=== PATIENT | female | born 1975 | race Caucasian/White ===

== ENCOUNTER 2016-11-11 19:21 | Emergency (ER) | payer BC ==
[2016-11-11] MEDS ORDERED: SODIUM CHLORIDE 0.9% 1,000 ML IV STA (19:56)
[2016-11-11] MEDS ORDERED: ASPIRIN 81 MG CHEW PO STA (19:56)
--- NOTE | 2016-11-11 20:00 | ED ---
Chest Pain HPI - General Chief Complaint: Chest Pain Stated Complaint: Chest Pain Time Seen by Provider: 11/11/16 19:46 Source: patient Mode of arrival: ambulatory Limitations: no limitations - History of Present Illness Initial Comments: Patient is a 41-year-old female past history of tobacco abuse presenting with left-sided chest pain. Patient states chest pain started at 6 PM when she was on the couch. Patient states it started with strong palpitations. Patient has not taken any with the pain. Patient states it radiated to her left shoulder. Patient denies any worsening pain with exertion. Patient states worse with sitting upright. Patient denies history of DVT/PE, recent travel/trauma/surgery , cancer, OCPs. Patient has history of hypertension, hyperlipidemia, diabetes, heart disease. Patient admits to drinking 2 Monsters a day. - Related Data Home Medications Medication Instructions Recorded Confirmed No Known Home Medications [No 11/11/16 11/11/16 Known Home Medications] Allergies Allergy/AdvReac Type Severity Reaction Status Date / Time cephalexin monohydrate Allergy Unknown Verified 11/11/16 19:39 [From Keflex] Penicillins Allergy Unknown Verified 11/11/16 19:39 Sulfa (Sulfonamide AdvReac Unknown Verified 11/11/16 19:39 Antibiotics) Review of Systems ROS Statement: Those systems with pertinent positive or pertinent negative responses have been documented in the HPI. Constitutional: No fever and no chills. HENT: No congestion, no rhinorrhea and no sore throat. Eyes: No discharge and no redness. Respiratory: No cough and no shortness of breath. Cardiovascular: Positive for palpitations and chest pain Gastrointestinal: +nausea, no vomiting, no abdominal pain and no diarrhea. Genitourinary: No dysuria and no hematuria. Musculoskeletal: No back pain and no arthralgias. Skin: No pallor and no rash. Neurological: No dizziness and No headaches. ROS Other: All systems not noted in ROS Statement are negative. EKG Findings - EKG Comments: EKG Findings:: EKG done at 1942 shows a ventricular rate of 88 bpm. Normal sinus rhythm with PVCs. GA interval 120 ms, QRS duration 86% segs, QTC [address] or T-wave changes. Past Medical History Past Medical History: No Reported History Additional Past Medical History / Comment(s): constipation History of Any Multi-Drug Resistant Organisms: None Reported Past Surgical History: Section, Cholecystectomy, Hysterectomy Past Psychological History: No Psychological Hx Reported Smoking Status: Never smoker Past Alcohol Use History: Occasional Past Drug Use History: None Reported General Exam - General Exam Comments Initial Comments: Constitutional: Patient appears well-developed and well-nourished. No distress. Head: Normocephalic and atraumatic. Eyes: Conjunctivae and EOM are normal. Right eye exhibits no discharge. Left eye exhibits no discharge. No scleral icterus. Neck: Normal range of motion. Neck supple. Cardiovascular: Normal rate and regular rhythm. No murmur heard. Pulmonary/Chest: Effort normal and breath sounds normal. No respiratory distress. No wheezes. Reproducible left chest wall and left shoulder tenderness Abdominal: Soft. No distension. There is no tenderness. There is no rebound and no guarding. Musculoskeletal: Normal range of motion. No edema or tenderness. Neurological: Patient alert and oriented to person, place, and time. Skin: Skin is warm and dry. Not diaphoretic. Nursing notes and vitals reviewed. Limitations: no limitations Course Vital Signs 11/11/16 11/11/16 19:29 20:16 Temperature 98.6 F Pulse Rate 108 H 88 Respiratory 18 16 Rate Blood Pressure 139/77 116/70 O2 Sat by Pulse 98 99 Oximetry - Reevaluation(s) Reevaluation #1: 11/11/16 21:16 Prior to discharge, patient was resting comfortably in bed. Course of stay improved. Denies chest pain. Patient is feeling better than when she first came in. Discussed physical exam and diagnostic tests with patient. Questions answered and patient is agreeable to discharge with close follow up with Primary Care Physician. Instructed to return to Emergency Department if symptoms worsen. [facility] Patient is a 41-year-old female with history of tobacco abuse presenting with left-sided chest pain. Patient's heart score is 2. Patient's PERC is positive for tachycardia and d-dimer was negative. EKG showed PVCs without ST or T-wave changes. Troponin was negative at ~3 hours after onset. Patient is feeling better after IV fluids and aspirin. Patient with reproducible left muscle tenderness for which Ativan was ordered. Patient agreeable to follow up with PCP tomorrow. Disposition Clinical Impression: Chest pain, Palpitations, PVCs (premature ventricular contractions) Disposition: HOME SELF-CARE Condition: Good Instructions: Chest Pain (ED), Costochondritis (ED), Palpitations (ED) Referrals: Chen Louis MD [Primary Care Provider] - 1-2 days
[2016-11-11 20:16] VITALS: RESP 16
[2016-11-11 20:39] LABS: Basophils # (A) 0.1 k/uL (0-0.2); Basophils % (A) 1 %; CH 28.8; CHCM 33.6; Eosinophils # (A) 0.6 k/uL (0-0.7); Eosinophils % (A) 7 %; HCT 42.4 % (34.0-46.0); HDW 2.31; Luc # (Auto) 0.15; Luc % (Auto) 2; Lymphocytes # (A) 2.7 k/uL (1.0-4.8); Lymphocytes % (A) 31 %; MCH 28.4 pg (25.0-35.0); MCV 85.9 fL (80.0-100.0); Mean Platelet Volume 7.8; Monocytes # (A) 0.5 k/uL (0-1.0); Monocytes % (A) 6 %; Neutrophils # (A) 4.5 k/uL (1.3-7.7); Neutrophils % (A) 52 %; RBC 4.94 m/uL (3.80-5.40); RDW 12.5 % (11.5-15.5); WBC 8.6 k/uL (3.8-10.6); WBC (Perox) 9.08
[2016-11-11 20:40] LABS: Appearance,Urine Clear (Clear); Bilirubin,Urine Negative (Negative); Glucose,Urine (UA) Negative (Negative); Ketones,Urine Negative (Negative); Leukocyte Esterase,Urine Negative (Negative); Nitrite,Urine Negative (Negative); PH, Urine 6.5 (5.0-8.0); Protein,Urine Negative (Negative); Specific Gravity,Urine 1.003 (1.001-1.035); UA Billing (MACRO vs. MICRO) CHEM; Urobilinogen,Urine <2.0 mg/dL (<2.0)
--- NOTE | 2016-11-11 20:48 | XR ---
EXAMINATION TYPE: XR chest 2V DATE OF EXAM: 11/11/2016 8:32 PM COMPARISON: 08/30/2015 HISTORY: Chest pain TECHNIQUE: Frontal and lateral views of the chest are obtained. FINDINGS: Heart and mediastinum are normal. Lungs are clear. Diaphragm is normal. Bony thorax and so ft tissues appear normal. There are chest leads. IMPRESSION: Normal chest. No change.
[2016-11-11 20:52] LABS: ALT 41 U/L (9-52); AST 21 U/L (14-36); Alkaline Phosphatase 45 U/L (38-126); Anion Gap 11 mmol/L; Blood Urea Nitrogen 9 mg/dL (7-17); Calcium 9.7 mg/dL (8.4-10.2); Carbon Dioxide 23 mmol/L (22-30); Chloride 107 mmol/L (98-107); Glucose 128 mg/dL (74-99); Magnesium 2.1 mg/dL (1.6-2.3); Non-African American GFR(MDRD) >60 (>60 ml/min/1.73 sqM); Potassium 3.8 mmol/L (3.5-5.1); Sodium 141 mmol/L (137-145); Total Bilirubin 0.5 mg/dL (0.2-1.3); Total Protein 7.3 g/dL (6.3-8.2)
[2016-11-11 20:53] LABS: Partial Thromboplastin Time 24.2 sec (22.0-30.0); Prothrombin Time 10.2 sec (9.0-12.0)
[2016-11-11] MEDS ORDERED: LORazepam 2 MG/ML SYRINGE IV STA (21:15)
[2016-11-11 21:19] VITALS: BP 105/67; PULSE 98
[2016-11-11 21:25] VITALS: TEMP 98.2
== END 2016-11-11 21:33 | disposition home or self-care (01) ==
LOC: EC 19:21
DX: R07.9 Chest pain, unspecified (principal); I49.3 Ventricular premature depolarization; R00.2 Palpitations; Z87.891 Personal history of nicotine dependence; Z88.0 Allergy status to penicillin; Z88.2 Allergy status to sulfonamides; Z88.1 Allergy status to other antibiotic agents
CPT/HCPCS: 96374; 96361; 99285; 36415; 93005; 85379; 80053; 83690; 83735; 84484; 85025; 85610; 85730; 81003; 71020; J2060

== ENCOUNTER 2017-01-31 04:07 | Emergency (ER) | payer BC ==
[2017-01-31] MEDS ORDERED: ACETAMINOPHEN TAB 500 MG TAB ONE (04:54)
[2017-01-31] MEDS ORDERED: SODIUM CHLORIDE 0.9% 1,000 ML BAG ONE (06:07)
[2017-01-31 07:27] LABS: Basophils % (A) 0 %; CH 29.2; CHCM 33.9; Eosinophils % (A) 0 %; HCT 41.5 % (34.0-46.0); HDW 2.32; HGB 14.1 gm/dL (11.4-16.0); Luc # (Auto) 0.09; Luc % (Auto) 1; Lymphocytes # (A) 0.9 k/uL (1.0-4.8); Lymphocytes % (A) 6 %; MCH 29.3 pg (25.0-35.0); MCHC 33.9 g/dL (31.0-37.0); MCV 86.3 fL (80.0-100.0); Mean Platelet Volume 7.5; Monocytes % (A) 7 %; Neutrophils # (A) 12.2 k/uL (1.3-7.7); Neutrophils % (A) 86 %; RBC 4.81 m/uL (3.80-5.40); RDW 12.6 % (11.5-15.5); WBC 14.3 k/uL (3.8-10.6); WBC (Perox) 14.65
[2017-01-31 07:28] LABS: INR 1.1 (<1.1); Partial Thromboplastin Time 25.9 sec (22.0-30.0); Prothrombin Time 10.7 sec (9.0-12.0)
[2017-01-31 07:33] LABS: Appearance,Urine Clear (Clear); Bacteria,Urine Occasional /hpf; Bilirubin,Urine Negative (Negative); Glucose,Urine (UA) Negative (Negative); Ketones,Urine 3+ (Negative); Leukocyte Esterase,Urine Negative (Negative); Mucus,Urine Occasional /hpf; Nitrite,Urine Negative (Negative); Particle Count 4649; Protein,Urine Trace (Negative); RBC,Urine 3 /hpf (0-5); Specific Gravity,Urine 1.016 (1.001-1.035); Squamous Epithelial Cell,Urine 2 /hpf (0-4); UA Billing (MACRO vs. MICRO) MICRO; Urobilinogen,Urine <2.0 mg/dL (<2.0); WBC,Urine 2 /hpf (0-5)
[2017-01-31 07:37] LABS: ALT 34 U/L (9-52); AST 26 U/L (14-36); Alkaline Phosphatase 64 U/L (38-126); Anion Gap 11 mmol/L; Blood Urea Nitrogen 6 mg/dL (7-17); Calcium 9.4 mg/dL (8.4-10.2); Carbon Dioxide 22 mmol/L (22-30); Chloride 105 mmol/L (98-107); Glucose 99 mg/dL (74-99); Magnesium 1.8 mg/dL (1.6-2.3); Non-African American GFR(MDRD) >60 (>60 ml/min/1.73 sqM); Potassium 3.7 mmol/L (3.5-5.1); Sodium 138 mmol/L (137-145); Total Bilirubin 0.6 mg/dL (0.2-1.3)
--- NOTE | 2017-01-31 08:32 | XR ---
EXAMINATION TYPE: XR chest 2V DATE OF EXAM: 01/31/2017 7:01 AM COMPARISON: Prior chest x-ray October HISTORY: Cough and congestion TECHNIQUE: Frontal and lateral views of the chest are obtained. FINDINGS: There is no focal air space opacity, pleural effusion, or pneumothorax seen. The cardiac silhouette size is within normal limits. Surgical clips in the upper abdomen. The osseous structures are intact. IMPRESSION: No acute cardiopulmonary process.
== END 2017-01-31 07:00 | disposition home or self-care (01) ==
LOC: EC 04:07
DX: J02.9 Acute pharyngitis, unspecified (principal)
CPT/HCPCS: 36415; 71020; 80053; 81001; 81025; 83735; 85025; 85610; 85730; 86308; 87081; 87430; 87502; 99283

== ENCOUNTER 2018-01-22 21:26 | Emergency (ER) | payer BC, OTHER ==
[2018-01-22 21:31] VITALS: PULSE 78; RESP 18
[2018-01-22] MEDS ORDERED: SODIUM CHLORIDE 0.9% 1,000 ML IV ONE (21:57)
[2018-01-22] MEDS ORDERED: MAG HYDROX/AL HYDROX/SIMETH 30 ML, HYOSCYAMINE ELIXIR 10 ML, CIMETIDINE HCL 300 MG, LID... PO STA ×4 (21:57)
[2018-01-22] MEDS ORDERED: MORPHINE SULFATE 4MG/4ML SYRG IVP STA (21:57)
[2018-01-22 22:47] LABS: Basophils % (A) 0 %; Eosinophils # (A) 0.5 k/uL (0-0.7); Eosinophils % (A) 7 %; HCT 40.7 % (34.0-46.0); HGB 13.7 gm/dL (11.4-16.0); Lymphocytes # (A) 3.3 k/uL (1.0-4.8); Lymphocytes % (A) 42 %; MCH 28.6 pg (25.0-35.0); MCHC 33.5 g/dL (31.0-37.0); MCV 85.4 fL (80.0-100.0); Mean Platelet Volume 7.8; Monocytes # (A) 0.6 k/uL (0-1.0); Monocytes % (A) 8 %; Neutrophils # (A) 3.1 k/uL (1.3-7.7); Neutrophils % (A) 41 %; Platelet Count 375 k/uL (150-450); RBC 4.77 m/uL (3.80-5.40); RDW 12.8 % (11.5-15.5); WBC 7.7 k/uL (3.8-10.6)
[2018-01-22 22:59] LABS: ALT 24 U/L (9-52); AST 14 U/L (14-36); Alkaline Phosphatase 42 U/L (38-126); Anion Gap 14 mmol/L; Blood Urea Nitrogen 10 mg/dL (7-17); Calcium 9.8 mg/dL (8.4-10.2); Carbon Dioxide 20 mmol/L (22-30); Chloride 110 mmol/L (98-107); Glucose 92 mg/dL (74-99); Lipase 147 U/L (23-300); Potassium 3.6 mmol/L (3.5-5.1); Sodium 144 mmol/L (137-145); Total Bilirubin 0.3 mg/dL (0.2-1.3); Total Protein 6.7 g/dL (6.3-8.2)
--- NOTE | 2018-01-23 00:06 | ED ---
Abdominal Pain HPI - General Chief Complaint: Abdominal Pain Stated Complaint: abd pain, nausea Time Seen by Provider: 01/22/18 21:40 Source: patient Mode of arrival: ambulatory Limitations: no limitations - History of Present Illness Initial Comments: 42-year-old female presented for evaluation of left-sided abdominal pain. She states that her symptoms started yesterday morning and progressively worsened throughout the last 24-36 hours. Pain is located on the left upper abdomen with some radiation to the epigastric and periumbilical abdomen. Pain is worse with by mouth intake and has no alleviating factors. There is no radiation and she rates it at about a 7-8 out of 10. She has tried no other medications for her symptoms. She's never had these symptoms before. - Related Data Home Medications Medication Instructions Recorded Confirmed Phentermine/Topiramate [Qsymia 15 1 cap PO DAILY 01/22/18 01/22/18 mg-92 mg Capsule] Previous Rx's Medication Instructions Recorded Mag Hydrox/Al Hydrox/Simeth 30 ml PO Q8HR PRN #300 ml 01/23/18 [Maalox] Ranitidine HCl [Zantac] 150 mg PO BID #30 tab 01/23/18 Allergies Allergy/AdvReac Type Severity Reaction Status Date / Time cephalexin monohydrate Allergy Anaphylaxis Verified 01/22/18 21:47 [From Keflex] Penicillins Allergy Anaphylaxis Verified 01/22/18 21:47 Sulfa (Sulfonamide AdvReac Anaphylaxis Verified 01/22/18 21:47 Antibiotics) Review of Systems ROS Statement: Those systems with pertinent positive or pertinent negative responses have been documented in the HPI. ROS Other: All systems not noted in ROS Statement are negative. Constitutional: Denies: fever, chills Eyes: Denies: eye pain, eye discharge ENT: Denies: ear pain, throat pain Respiratory: Denies: cough, dyspnea Cardiovascular: Denies: chest pain, palpitations Endocrine: Denies: fatigue, heat or cold intolerance Gastrointestinal: Reports: abdominal pain, nausea. Denies: vomiting, diarrhea, constipation Genitourinary: Denies: urgency, dysuria Musculoskeletal: Denies: back pain, arthralgia, myalgia Skin: Denies: rash, lesions Neurological: Denies: headache, weakness Psychiatric: Denies: anxiety, depression Past Medical History Past Medical History: No Reported History Additional Past Medical History / Comment(s): constipation History of Any Multi-Drug Resistant Organisms: None Reported Past Surgical History: Section, Cholecystectomy, Hysterectomy Past Psychological History: No Psychological Hx Reported Smoking Status: Current every day smoker Past Alcohol Use History: Occasional Past Drug Use History: None Reported General Exam Limitations: no limitations General appearance: alert, in no apparent distress Head exam: Present: atraumatic, normocephalic Eye exam: Present: normal appearance, PERRL, EOMI ENT exam: Present: normal exam, normal oropharynx Neck exam: Present: normal inspection, full ROM Respiratory exam: Present: normal lung sounds bilaterally. Absent: respiratory distress Cardiovascular Exam: Present: regular rate, normal rhythm GI/Abdominal exam: Present: soft, tenderness. Absent: distended, guarding, rebound, rigid Rectal exam: Present: deferred Extremities exam: Present: normal inspection, full ROM Back exam: Present: normal inspection, full ROM Neurological exam: Present: alert, oriented X3 Psychiatric exam: Present: normal affect, normal mood Skin exam: Present: warm, dry, intact Course Vital Signs 01/22/18 01/23/18 21:29 00:34 Temperature 98.2 F 98.6 F Pulse Rate 78 78 Respiratory 18 18 Rate Blood Pressure 121/74 105/63 O2 Sat by Pulse 98 100 Oximetry Medical Decision Making - Medical Decision Making 42-year-old female presenting for evaluation of left upper quadrant abdominal pain since yesterday. On physical examination she is in no apparent distress and vitals signs are stable. Abdomen is soft without peritoneal signs of guarding, rigidity, rebound or but she does have tenderness to right upper quadrant and epigastric abdomen. Remainder of her physical exam is benign. Labs are obtained which were negative for pancreatitis and had no other acute abnormalities. Patient was reevaluated after be given GI cocktail and she had improvement in her symptoms. Abdomen remained soft and only minimally tender at this point. She was informed of all results and as point CT abdomen and pelvis not indicated with normal signs, no leukocytosis, improving symptoms with the cocktail. Advised to follow up as an outpatient and given strict return instructions if her symptoms should worsen or persist over the weekend. She return to the ED for further treatment and evaluation she would likely require computed tomography scan among other options. The patient acknowledged an understanding of all information provided and agreed with this plan of care. - Lab Data Result diagrams: 01/22/18 22:25 01/22/18 22:25 Lab Results 01/22/18 01/22/18 01/22/18 Range/Units 22:25 22:25 22:25 WBC 7.7 (3.8-10.6) k/uL RBC 4.77 (3.80-5.40) m/uL Hgb 13.7 (11.4-16.0) gm/dL Hct 40.7 (34.0-46.0) % MCV 85.4 (80.0-100.0) fL MCH 28.6 (25.0-35.0) pg MCHC 33.5 (31.0-37.0) g/dL RDW 12.8 (11.5-15.5) % Plt Count 375 (150-450) k/uL Neutrophils % 41 % Lymphocytes % 42 % Monocytes % 8 % Eosinophils % 7 % Basophils % 0 % Neutrophils # 3.1 (1.3-7.7) k/uL Lymphocytes # 3.3 (1.0-4.8) k/uL Monocytes # 0.6 (0-1.0) k/uL Eosinophils # 0.5 (0-0.7) k/uL Basophils # 0.0 (0-0.2) k/uL Sodium 144 (137-145) mmol/L Potassium 3.6 (3.5-5.1) mmol/L Chloride 110 H (98-107) mmol/L Carbon Dioxide 20 L (22-30) mmol/L Anion Gap 14 mmol/L BUN 10 (7-17) mg/dL Creatinine 0.70 (0.52-1.04) mg/dL Est GFR (CKD-EPI)AfAm >90 (>60 ml/min/1.73 sqM) Est GFR (CKD-EPI)NonAf >90 (>60 ml/min/1.73 sqM) Glucose 92 (74-99) mg/dL Plasma Lactic Acid Slava 0.9 (0.7-2.0) mmol/L Calcium 9.8 (8.4-10.2) mg/dL Total Bilirubin 0.3 (0.2-1.3) mg/dL AST 14 (14-36) U/L ALT 24 (9-52) U/L Alkaline Phosphatase 42 (38-126) U/L Troponin I (0.000-0.034) ng/mL Total Protein 6.7 (6.3-8.2) g/dL Albumin 4.0 (3.5-5.0) g/dL Lipase 147 (23-300) U/L 01/22/18 Range/Units 22:25 WBC (3.8-10.6) k/uL RBC (3.80-5.40) m/uL Hgb (11.4-16.0) gm/dL Hct (34.0-46.0) % MCV (80.0-100.0) fL MCH (25.0-35.0) pg MCHC (31.0-37.0) g/dL RDW (11.5-15.5) % Plt Count (150-450) k/uL Neutrophils % % Lymphocytes % % Monocytes % % Eosinophils % % Basophils % % Neutrophils # (1.3-7.7) k/uL Lymphocytes # (1.0-4.8) k/uL Monocytes # (0-1.0) k/uL Eosinophils # (0-0.7) k/uL Basophils # (0-0.2) k/uL Sodium (137-145) mmol/L Potassium (3.5-5.1) mmol/L Chloride (98-107) mmol/L Carbon Dioxide (22-30) mmol/L Anion Gap mmol/L BUN (7-17) mg/dL Creatinine (0.52-1.04) mg/dL Est GFR (CKD-EPI)AfAm (>60 ml/min/1.73 sqM) Est GFR (CKD-EPI)NonAf (>60 ml/min/1.73 sqM) Glucose (74-99) mg/dL Plasma Lactic Acid Slava (0.7-2.0) mmol/L Calcium (8.4-10.2) mg/dL Total Bilirubin (0.2-1.3) mg/dL AST (14-36) U/L ALT (9-52) U/L Alkaline Phosphatase (38-126) U/L Troponin I <0.012 (0.000-0.034) ng/mL Total Protein (6.3-8.2) g/dL Albumin (3.5-5.0) g/dL Lipase (23-300) U/L Disposition Clinical Impression: Abdominal pain Disposition: HOME SELF-CARE Condition: Stable Instructions: Abdominal Pain (ED) Additional Instructions: Please use medication as discussed. Please follow up with family doctor if symptoms have not improved over the next two days. Please return to the emergency room if your symptoms increase or worsen or for any other concerns. Prescriptions: Mag Hydrox/Al Hydrox/Simeth [Maalox] 30 ml PO Q8HR PRN #300 ml PRN Reason: abdominal pain Ranitidine HCl [Zantac] 150 mg PO BID #30 tab Referrals: Chen Louis MD [Primary Care Provider] - 1-2 days Ilir Dennis MD [STAFF PHYSICIAN] - 1-2 days Time of Disposition: 00:05
[2018-01-23 00:36] VITALS: BP 105/63; TEMP 98.6
== END 2018-01-23 00:46 | disposition home or self-care (01) ==
LOC: EC 21:26
DX: R10.12 Left upper quadrant pain (principal); R10.13 Epigastric pain; R10.11 Right upper quadrant pain; F17.200 Nicotine dependence, unspecified, uncomplicated; Z79.899 Other long term (current) drug therapy; Z88.0 Allergy status to penicillin; Z88.2 Allergy status to sulfonamides; Z88.1 Allergy status to other antibiotic agents; Z90.49 Acquired absence of other specified parts of digestive tract; Z90.710 Acquired absence of both cervix and uterus
CPT/HCPCS: 36415; 93005; 80053; 83605; 83690; 84484; 85025; 99284; 96374; 96361 ×2; J2270

== ENCOUNTER 2018-01-30 19:25 | Emergency (ER) | payer BC ==
[2018-01-30 19:42] VITALS: RESP 16
[2018-01-30] MEDS ORDERED: RX INFO: IV CONTRAST WAS GIVEN 1 EACH MISC MISCELLANE PRN (20:14)
[2018-01-30] MEDS ORDERED: SODIUM CHLORIDE 0.9% 1,000 ML IV STA (20:14)
--- NOTE | 2018-01-30 20:19 | ED ---
Abdominal Pain HPI - General Chief Complaint: Abdominal Pain Stated Complaint: Abd pain Time Seen by Provider: 01/30/18 20:06 Source: patient Mode of arrival: ambulatory Limitations: no limitations - History of Present Illness Initial Comments: 42-year-old female patient presents to the emergency department today for evaluation of generalized abdominal pain 1 week. Patient describes the pain as "thick". Patient states the pain worsens with eating. She describes pain as sharp, burning, and stabbing pain. States it is mostly in her midepigastric region at this point. Patient has had 3 C-sections and a cholecystectomy in the past. Patient states she is feeling nauseated but has not vomited. Patient states that over the last 2 days she has been having dark green diarrhea. States that it is soft but not liquidy. Patient generally has issues with constipation however states she has been having bowel movements daily. Patient was seen and evaluated here one week ago and told she most likely has a ulcer. States she has been taking Zantac and Maalox without relief of symptoms. She denies any fevers or chills with this. Denies any radiation of the pain to her back. She denies any hematuria, dysuria, urinary frequency, urinary urgency. Denies any abnormal vaginal bleeding or discharge. Patient denies any recent rash, shortness breath, chest pain, diarrhea, constipation, back pain, numbness, tingling, dizziness, weakness, headache, visual changes, or any other complaints. - Related Data Home Medications Medication Instructions Recorded Confirmed Phentermine/Topiramate [Qsymia 15 1 cap PO DAILY 01/22/18 01/30/18 mg-92 mg Capsule] Previous Rx's Medication Instructions Recorded Mag Hydrox/Al Hydrox/Simeth 30 ml PO Q8HR PRN #300 ml 01/23/18 [Maalox] Ranitidine HCl [Zantac] 150 mg PO BID #30 tab 01/23/18 Ranitidine HCl [Zantac] 150 mg PO BID #60 tab 01/30/18 Allergies Allergy/AdvReac Type Severity Reaction Status Date / Time cephalexin monohydrate Allergy Anaphylaxis Verified 01/30/18 19:46 [From Keflex] Penicillins Allergy Anaphylaxis Verified 01/30/18 19:46 Sulfa (Sulfonamide AdvReac Anaphylaxis Verified 01/30/18 19:46 Antibiotics) Review of Systems ROS Statement: Those systems with pertinent positive or pertinent negative responses have been documented in the HPI. ROS Other: All systems not noted in ROS Statement are negative. Past Medical History Past Medical History: No Reported History Additional Past Medical History / Comment(s): constipation History of Any Multi-Drug Resistant Organisms: None Reported Past Surgical History: Section, Cholecystectomy, Hysterectomy Past Psychological History: No Psychological Hx Reported Smoking Status: Current every day smoker Past Alcohol Use History: Occasional Past Drug Use History: None Reported General Exam Limitations: no limitations General appearance: alert, in no apparent distress, other (This is a well- developed, well-nourished adult female patient in no acute distress. Vital signs upon presentation are temperature 97.5F, pulse 109, respirations 16, blood pressure 137/65, pulse ox 99% on room air.) Eye exam: Present: normal appearance, PERRL, EOMI. Absent: scleral icterus, conjunctival injection, periorbital swelling ENT exam: Present: normal exam, normal oropharynx, mucous membranes moist Respiratory exam: Present: normal lung sounds bilaterally. Absent: respiratory distress, wheezes, rales, rhonchi, stridor Cardiovascular Exam: Present: normal rhythm, tachycardia, normal heart sounds. Absent: systolic murmur, diastolic murmur, rubs, gallop, clicks GI/Abdominal exam: Present: soft, tenderness (Upper abdominal tenderness), normal bowel sounds. Absent: distended, guarding, rebound, rigid Neurological exam: Present: alert, oriented X3, CN II-XII intact Psychiatric exam: Present: normal affect, normal mood Skin exam: Present: warm, dry, intact, normal color. Absent: rash Course Vital Signs 01/30/18 01/30/18 19:39 22:26 Temperature 97.5 F L 98.8 F Pulse Rate 109 H 110 H Respiratory 16 16 Rate Blood Pressure 137/65 113/57 O2 Sat by Pulse 99 98 Oximetry Medical Decision Making - Medical Decision Making 42-year-old female patient presents to the emergency department today complaining of generalized abdominal pain mostly in the epigastric region. States it worsens after eating. Physical examination did reveal some mild upper abdominal tenderness. Labs reviewed and are unremarkable. Urinalysis was negative. This is patient's second visit for similar symptoms in the last week. Did perform CT of the abdomen and pelvis which showed no acute abnormalities. I did discuss findings and results with the patient. I did discuss peptic ulcer disease is a possibility for the cause of her symptoms. She was given education regarding dietary changes. She was given a refill on her Zantac. She is instructed to follow-up with the instructional coordinator. Return parameters discussed in detail. She verbalizes understanding and agrees with this plan. - Lab Data Result diagrams: 01/30/18 20:32 01/30/18 20:32 Lab Results 01/30/18 01/30/18 01/30/18 Range/Units 20:22 20:22 20:32 WBC (3.8-10.6) k/uL RBC (3.80-5.40) m/uL Hgb (11.4-16.0) gm/dL Hct (34.0-46.0) % MCV (80.0-100.0) fL MCH (25.0-35.0) pg MCHC (31.0-37.0) g/dL RDW (11.5-15.5) % Plt Count (150-450) k/uL Neutrophils % % Lymphocytes % % Monocytes % % Eosinophils % % Basophils % % Neutrophils # (1.3-7.7) k/uL Lymphocytes # (1.0-4.8) k/uL Monocytes # (0-1.0) k/uL Eosinophils # (0-0.7) k/uL Basophils # (0-0.2) k/uL Sodium 145 (137-145) mmol/L Potassium 4.1 (3.5-5.1) mmol/L Chloride 110 H (98-107) mmol/L Carbon Dioxide 20 L (22-30) mmol/L Anion Gap 15 mmol/L BUN 7 (7-17) mg/dL Creatinine 0.72 (0.52-1.04) mg/dL Est GFR (CKD-EPI)AfAm >90 (>60 ml/min/1.73 sqM) Est GFR (CKD-EPI)NonAf >90 (>60 ml/min/1.73 sqM) Glucose 88 (74-99) mg/dL Calcium 10.1 (8.4-10.2) mg/dL Total Bilirubin 0.4 (0.2-1.3) mg/dL AST 21 (14-36) U/L ALT 32 (9-52) U/L Alkaline Phosphatase 43 (38-126) U/L Total Protein 7.0 (6.3-8.2) g/dL Albumin 4.3 (3.5-5.0) g/dL Amylase 86 (30-110) U/L Lipase 103 (23-300) U/L Urine Color Colorless Urine Appearance Clear (Clear) Urine pH 7.0 (5.0-8.0) Ur Specific [place] 1.003 (1.001-1.035) Urine Protein Negative (Negative) Urine Glucose (UA) Negative (Negative) Urine Ketones Negative (Negative) Urine Blood Negative (Negative) Urine Nitrite Negative (Negative) Urine Bilirubin Negative (Negative) Urine Urobilinogen <2.0 (<2.0) mg/dL Ur Leukocyte Esterase Negative (Negative) Urine HCG, Qual Not Detected (Not Detectd) 01/30/18 Range/Units 20:32 WBC 6.1 (3.8-10.6) k/uL RBC 4.97 (3.80-5.40) m/uL Hgb 14.1 (11.4-16.0) gm/dL Hct 43.4 (34.0-46.0) % MCV 87.4 (80.0-100.0) fL MCH 28.4 (25.0-35.0) pg MCHC 32.5 (31.0-37.0) g/dL RDW 12.6 (11.5-15.5) % Plt Count 356 (150-450) k/uL Neutrophils % 37 % Lymphocytes % 43 % Monocytes % 8 % Eosinophils % 9 % Basophils % 0 % Neutrophils # 2.3 (1.3-7.7) k/uL Lymphocytes # 2.6 (1.0-4.8) k/uL Monocytes # 0.5 (0-1.0) k/uL Eosinophils # 0.6 (0-0.7) k/uL Basophils # 0.0 (0-0.2) k/uL Sodium (137-145) mmol/L Potassium (3.5-5.1) mmol/L Chloride (98-107) mmol/L Carbon Dioxide (22-30) mmol/L Anion Gap mmol/L BUN (7-17) mg/dL Creatinine (0.52-1.04) mg/dL Est GFR (CKD-EPI)AfAm (>60 ml/min/1.73 sqM) Est GFR (CKD-EPI)NonAf (>60 ml/min/1.73 sqM) Glucose (74-99) mg/dL Calcium (8.4-10.2) mg/dL Total Bilirubin (0.2-1.3) mg/dL AST (14-36) U/L ALT (9-52) U/L Alkaline Phosphatase (38-126) U/L Total Protein (6.3-8.2) g/dL Albumin (3.5-5.0) g/dL Amylase (30-110) U/L Lipase (23-300) U/L Urine Color Urine Appearance (Clear) Urine pH (5.0-8.0) Ur Specific [place] (1.001-1.035) Urine Protein (Negative) Urine Glucose (UA) (Negative) Urine Ketones (Negative) Urine Blood (Negative) Urine Nitrite (Negative) Urine Bilirubin (Negative) Urine Urobilinogen (<2.0) mg/dL Ur Leukocyte Esterase (Negative) Urine HCG, Qual (Not Detectd) - EKG Data -: EKG Interpreted by Mo EKG Comments: EKG obtained at 2037 shows normal sinus rhythm with a ventricular rate of 87, NE interval 154, QRS duration 94, QT 380, QTC 457. No evidence of ST elevation or depression. - Radiology Data Radiology results: report reviewed, image reviewed CT of the abdomen and pelvis with contrast was obtained. Report was reviewed in its entirety. Impression by Dr. Salcedo shows normal appendix. Calcified posterior mild disc herniation L3 to 4 with a mild relative spinal stenosis. This is similar to old exam. No sign of acute abdomen and pelvis. Disposition Clinical Impression: Abdominal pain Disposition: HOME SELF-CARE Condition: Good Instructions: Peptic Ulcer (ED), Diet for Stomach Ulcers and Gastritis (ED), Abdominal Pain (ED) Additional Instructions: Continue medications. Follow up with GI specialist as soon as possible. Return here immediately for any new, worsening, or concerning symptoms. Prescriptions: Ranitidine HCl [Zantac] 150 mg PO BID #60 tab Referrals: Chen Louis MD [Primary Care Provider] - 1-2 days Ilir Dennis MD [STAFF PHYSICIAN] - 1-2 days Time of Disposition: 22:33
[2018-01-30 20:37] LABS: Appearance,Urine Clear (Clear); Bilirubin,Urine Negative (Negative); Blood,Urine Negative (Negative); Color,Urine Colorless; Glucose,Urine (UA) Negative (Negative); Ketones,Urine Negative (Negative); Leukocyte Esterase,Urine Negative (Negative); Nitrite,Urine Negative (Negative); Protein,Urine Negative (Negative); Specific Gravity,Urine 1.003 (1.001-1.035); Urobilinogen,Urine <2.0 mg/dL (<2.0)
[2018-01-30 20:56] LABS: Basophils % (A) 0 %; Eosinophils # (A) 0.6 k/uL (0-0.7); Eosinophils % (A) 9 %; HCT 43.4 % (34.0-46.0); HGB 14.1 gm/dL (11.4-16.0); Lymphocytes # (A) 2.6 k/uL (1.0-4.8); Lymphocytes % (A) 43 %; MCH 28.4 pg (25.0-35.0); MCHC 32.5 g/dL (31.0-37.0); MCV 87.4 fL (80.0-100.0); Mean Platelet Volume 7.5; Monocytes # (A) 0.5 k/uL (0-1.0); Monocytes % (A) 8 %; Neutrophils # (A) 2.3 k/uL (1.3-7.7); Neutrophils % (A) 37 %; Platelet Count 356 k/uL (150-450); RBC 4.97 m/uL (3.80-5.40); RDW 12.6 % (11.5-15.5); WBC 6.1 k/uL (3.8-10.6)
[2018-01-30 21:23] LABS: ALT 32 U/L (9-52); AST 21 U/L (14-36); Albumin 4.3 g/dL (3.5-5.0); Alkaline Phosphatase 43 U/L (38-126); Amylase 86 U/L (30-110); Anion Gap 15 mmol/L; Blood Urea Nitrogen 7 mg/dL (7-17); Calcium 10.1 mg/dL (8.4-10.2); Carbon Dioxide 20 mmol/L (22-30); Chloride 110 mmol/L (98-107); Glucose 88 mg/dL (74-99); Lipase 103 U/L (23-300); Potassium 4.1 mmol/L (3.5-5.1); Sodium 145 mmol/L (137-145); Total Bilirubin 0.4 mg/dL (0.2-1.3)
--- NOTE | 2018-01-30 21:52 | CT ---
EXAMINATION TYPE: CT abdomen pelvis w con DATE OF EXAM: 01/30/2018 COMPARISON: November 26, 2010 HISTORY: Generalized abd pain, nausea and diarrhea. CT DLP: 585.2 mGycm Automated exposure control for dose reduction was used. TECHNIQUE: Helical acquisition of images was performed from the lung bases through the pelvis. CONTRAST: Performed without Oral Contrast and with IV Contrast, patient injected with 100ml mL of Isovue 300. FINDINGS: Lung bases are clear. There is no pleural effusion. Heart size is normal. The liver spleen pancreas appear normal. There are clips from cholecystectomy. Bile ducts are not dil ated. There is no adrenal mass. Kidneys show satisfactory contrast opacification. There is no hydronephrosi s. There is no retroperitoneal adenopathy. There is no ascites. The bladder distends smoothly. There is no evidence of a pelvic mass. I see no intestinal wall thickening. There are no dilated loops. Beto endix appears normal. There is spondylotic change at L4-5. There is posterior disc herniation at L3-4 with calcification. There is a mild relative spinal stenosis at L3-4. Uterus appears absent. IMPRESSION: NORMAL APPENDIX. CALCIFIED POSTERIOR MILD DISC HERNIATION AT L3-4 WITH A MILD RELATIVE SPINAL STENOSI S. THIS IS SIMILAR TO OLD EXAM. NO SIGN OF ACUTE ABDOMEN AND PELVIS.
[2018-01-30 22:27] VITALS: BP 113/57; PULSE 110; TEMP 98.8
== END 2018-01-30 22:40 | disposition home or self-care (01) ==
LOC: EC 19:25
DX: R10.13 Epigastric pain (principal); R10.84 Generalized abdominal pain; R11.0 Nausea; M51.26 Other intervertebral disc displacement, lumbar region; R00.0 Tachycardia, unspecified; F17.200 Nicotine dependence, unspecified, uncomplicated; Z79.899 Other long term (current) drug therapy; Z88.0 Allergy status to penicillin; Z88.1 Allergy status to other antibiotic agents; Z88.2 Allergy status to sulfonamides; Z90.49 Acquired absence of other specified parts of digestive tract
CPT/HCPCS: 36415; 93005; 80053; 82150; 83690; 85025; 81003; 81025; 74177; 99284; Q9967

== ENCOUNTER 2018-02-05 12:40 | Day surgery (SDC) | payer BC ==
[2018-02-04 14:12] VITALS: BMI 27.4
[~2018-02-05 12:40] MED LIST: LACTATED RINGERS 1,000 ML IV SCH
[2018-02-05 13:18] VITALS: RESP 16; TEMP 98.3
[2018-02-05] MEDS ORDERED: LIDOCAINE 1% INJ 10MG/ML (20 ML MDV) ONE (14:12)
[2018-02-05] MEDS ORDERED: PROPOFOL 10 MG/ML 20 ML VIAL IV ONE (14:12)
--- NOTE | 2018-02-05 14:21 | P.GSHP ---
History of Present Illness H&P Date: 02/05/18 Chief Complaint: Abdominal pain Patient is been having epigastric and left upper quadrant pain for the last 2-3 weeks. Pain is pressure like. Some nausea but no vomiting. No significant change in bowel habits. Denies rectal bleeding or melena. No fevers. Recent labs normal. Had a CAT scan recently which showed a large amount of food within the stomach but otherwise normal. Past Medical History Past Medical History: No Reported History Additional Past Medical History / Comment(s): HX constipation. SEVERE ABD PAIN FOR 2 WEEKS. History of Any Multi-Drug Resistant Organisms: None Reported Past Surgical History: Section, Cholecystectomy, Hysterectomy, Uterine Ablation Past Anesthesia/Blood Transfusion Reactions: No Reported Reaction Smoking Status: Current every day smoker - Past Family History Sister(s) Family Medical History: Pulmonary Embolus Medications and Allergies Home Medications Medication Instructions Recorded Confirmed Type Phentermine/Topiramate [Qsymia 15 1 cap PO DAILY 01/22/18 02/05/18 History mg-92 mg Capsule] Ranitidine HCl [Zantac] 150 mg PO BID #60 tab 01/30/18 02/04/18 Rx Mag Hydrox/Al Hydrox/Simeth 30 ml PO BID 02/04/18 02/04/18 History [Maalox] Allergies Allergy/AdvReac Type Severity Reaction Status Date / Time cephalexin monohydrate Allergy Anaphylaxis Verified 02/05/18 13:07 [From Keflex] Penicillins Allergy Anaphylaxis Verified 02/05/18 13:07 Sulfa (Sulfonamide Allergy Anaphylaxis Verified 02/05/18 13:07 Antibiotics) Surgical - Exam Vital Signs Temp Pulse Resp BP Pulse Ox 98.3 F 90 16 114/63 98 02/05/18 13:17 02/05/18 13:17 02/05/18 13:17 02/05/18 13:17 02/05/18 13:17 Physical exam: General: Well-developed, well-nourished HEENT: Normocephalic, sclerae nonicteric Abdomen: Nontender, nondistended Extremities: No edema Neuro: Alert and oriented Assessment and Plan (1) Abdominal pain Narrative/Plan: Will proceed with upper endoscopy. Current Visit: No Status: Acute Code(s): R10.9 - UNSPECIFIED ABDOMINAL PAIN SNOMED Code(s): 68581902
--- NOTE | 2018-02-05 14:34 | P.PCN ---
Date of Procedure: 02/05/18 Procedure(s) Performed: Preoperative Dx: Epigastric and left upper quadrant abdominal pain Postoperative Dx: Gastritis with small erosions, small sliding hiatal hernia Procedure: EGD with Bx Anesthesia: Sedation Endoscopist: Dr. Louis Specimens: Antrum Endoscopic Procedure: The patient was on the endoscopy table in the left decubitus position. The Olympus gastroscope was inserted into the oropharynx and passed under direct visualization to the region of the third portion of the duodenum. From that point the scope was slowly withdrawn inspecting all surfaces carefully. There were no neoplastic inflammatory or polypoid lesions throughout the duodenum. The pylorus was widely patent. Initially at the pylorus I thought there may be a small pyloric channel ulcer. As this was inspected more closely no definite ulcer was seen. There was gastritis present in the prepyloric region and antral region with small erosions. Biopsies of this area took place. Retroflexion took place. A small sliding hiatal hernia was seen. This was present about 1 cm above the diaphragmatic hiatus. The esophagus was then carefully examined. There were no neoplastic inflammatory or polypoid lesions throughout the visualized esophagus. The patient was then taken to the recovery room in stable condition per anesthesia guidelines. Recommendations: Increase antiacid therapy. Follow-up if symptoms of abdominal pain persists.
[2018-02-05 14:52] VITALS: BP 107/66; PULSE 92
== END 2018-02-05 15:29 | disposition home or self-care (01) ==
LOC: ORWHC2ENDO 12:40
PROVIDERS: ATTEND Surgery
DX: K29.50 Unspecified chronic gastritis without bleeding (principal); K25.9 Gastric ulcer, unspecified as acute or chronic, without hemorrhage or perforation; K44.9 Diaphragmatic hernia without obstruction or gangrene; K29.80 Duodenitis without bleeding; K21.9 Gastro-esophageal reflux disease without esophagitis; Z79.899 Other long term (current) drug therapy; Z88.1 Allergy status to other antibiotic agents; Z88.0 Allergy status to penicillin; Z88.2 Allergy status to sulfonamides; F17.210 Nicotine dependence, cigarettes, uncomplicated; Z98.51 Tubal ligation status; Z90.49 Acquired absence of other specified parts of digestive tract; Z90.710 Acquired absence of both cervix and uterus
CPT/HCPCS: 88305; 43239; J2001; J2704

== ENCOUNTER 2018-04-25 05:58 | Emergency (ER) | payer BC ==
[2018-04-25 06:04] VITALS: BP 109/74; PULSE 74; RESP 16; TEMP 97.7
[2018-04-25 06:18] LABS: Appearance,Urine Cloudy (Clear); Bacteria,Urine Rare /hpf; Bilirubin,Urine Negative (Negative); Blood,Urine Negative (Negative); Budding Yeast,Urine Few /hpf; Color,Urine Yellow; Glucose,Urine (UA) Negative (Negative); Ketones,Urine Negative (Negative); Leukocyte Esterase,Urine Large (Negative); Mucus,Urine Occasional /hpf; Nitrite,Urine Negative (Negative); Protein,Urine Negative (Negative); RBC,Urine 5 /hpf (0-5); Specific Gravity,Urine 1.017 (1.001-1.035); Squamous Epithelial Cell,Urine 9 /hpf (0-4); Urobilinogen,Urine <2.0 mg/dL (<2.0); WBC,Urine 27 /hpf (0-5)
--- NOTE | 2018-04-25 06:19 | ED ---
General Adult HPI - General Chief complaint: Urogenital Stated complaint: Possible Bladder infection Time Seen by Provider: 04/25/18 06:06 Source: patient, RN notes reviewed, old records reviewed Mode of arrival: ambulatory Limitations: no limitations - History of Present Illness Initial comments: This is a 42-year-old female the ER for evaluation today. Patient presented for evaluation of significant pain with urination, runny with urination. Patient has no significant medical history denies bowel pain no nausea vomiting diarrhea or fever. - Related Data Home Medications Medication Instructions Recorded Confirmed Phentermine/Topiramate [Qsymia 15 1 cap PO DAILY 01/22/18 02/05/18 mg-92 mg Capsule] Mag Hydrox/Al Hydrox/Simeth 30 ml PO BID 02/04/18 02/04/18 [Maalox] Previous Rx's Medication Instructions Recorded Ranitidine HCl [Zantac] 150 mg PO BID #60 tab 01/30/18 Omeprazole [PriLOSEC] 20 mg PO AC-BRKFST #90 cap 02/05/18 Sucralfate [Carafate] 1 gm PO ACHS #120 tab 02/05/18 Nitrofurantoin Monohyd/M-Cryst 100 mg PO Q12HR #10 cap 04/25/18 [Macrobid] Allergies Allergy/AdvReac Type Severity Reaction Status Date / Time cephalexin monohydrate Allergy Anaphylaxis Verified 04/25/18 06:05 [From Keflex] Penicillins Allergy Anaphylaxis Verified 04/25/18 06:05 Sulfa (Sulfonamide Allergy Anaphylaxis Verified 04/25/18 06:05 Antibiotics) Review of Systems ROS Statement: Those systems with pertinent positive or pertinent negative responses have been documented in the HPI. ROS Other: All systems not noted in ROS Statement are negative. Past Medical History Past Medical History: No Reported History Additional Past Medical History / Comment(s): HX constipation. SEVERE ABD PAIN FOR 2 WEEKS. History of Any Multi-Drug Resistant Organisms: None Reported Past Surgical History: Section, Cholecystectomy, Hysterectomy, Uterine Ablation Past Anesthesia/Blood Transfusion Reactions: No Reported Reaction Past Psychological History: No Psychological Hx Reported Smoking Status: Current every day smoker Past Alcohol Use History: Occasional Past Drug Use History: None Reported - Past Family History Sister(s) Family Medical History: Pulmonary Embolus General Exam Limitations: no limitations General appearance: alert, in no apparent distress Head exam: Present: atraumatic, normocephalic, normal inspection Eye exam: Present: normal appearance, PERRL, EOMI. Absent: scleral icterus, conjunctival injection, periorbital swelling ENT exam: Present: normal exam, mucous membranes moist Neck exam: Present: normal inspection. Absent: tenderness, meningismus, lymphadenopathy Respiratory exam: Present: normal lung sounds bilaterally. Absent: respiratory distress, wheezes, rales, rhonchi, stridor Cardiovascular Exam: Present: regular rate, normal rhythm, normal heart sounds. Absent: systolic murmur, diastolic murmur, rubs, gallop, clicks GI/Abdominal exam: Present: soft, normal bowel sounds. Absent: distended, tenderness, guarding, rebound, rigid Extremities exam: Present: normal inspection, full ROM, normal capillary refill. Absent: tenderness, pedal edema, joint swelling, calf tenderness Back exam: Present: normal inspection Neurological exam: Present: alert, oriented X3, CN II-XII intact Psychiatric exam: Present: normal affect, normal mood Skin exam: Present: warm, dry, intact, normal color. Absent: rash Course Vital Signs 04/25/18 06:02 Temperature 97.7 F Pulse Rate 74 Respiratory 16 Rate Blood Pressure 109/74 O2 Sat by Pulse 100 Oximetry Medical Decision Making - Medical Decision Making 42 female positive UTI. Patient placed on antibiotics and can be discharged home - Lab Data Lab Results 04/25/18 Range/Units 06:05 Urine Color Yellow Urine Appearance Cloudy H (Clear) Urine pH 6.0 (5.0-8.0) Ur Specific [place] 1.017 (1.001-1.035) Urine Protein Negative (Negative) Urine Glucose (UA) Negative (Negative) Urine Ketones Negative (Negative) Urine Blood Negative (Negative) Urine Nitrite Negative (Negative) Urine Bilirubin Negative (Negative) Urine Urobilinogen <2.0 (<2.0) mg/dL Ur Leukocyte Esterase Large H (Negative) Urine RBC 5 (0-5) /hpf Urine WBC 27 H (0-5) /hpf Ur Squamous Epith Cells 9 H (0-4) /hpf Urine Bacteria Rare H (None) /hpf Urine Mucus Occasional H (None) /hpf Urine Yeast (Budding) Few H (None) /hpf Disposition Clinical Impression: Urinary tract infection Disposition: HOME SELF-CARE Condition: Good Instructions: Urinary Tract Infection in Women (ED) Prescriptions: Nitrofurantoin Monohyd/M-Cryst [Macrobid] 100 mg PO Q12HR #10 cap Is patient prescribed a controlled substance at d/c from ED?: No Referrals: Chen Louis MD [Primary Care Provider] - 1-2 days
== END 2018-04-25 06:36 | disposition home or self-care (01) ==
LOC: EC 05:58
DX: N39.0 Urinary tract infection, site not specified (principal); F17.200 Nicotine dependence, unspecified, uncomplicated; Z79.899 Other long term (current) drug therapy; Z88.0 Allergy status to penicillin; Z88.1 Allergy status to other antibiotic agents; Z88.2 Allergy status to sulfonamides
CPT/HCPCS: 81001; 87077; 87086; 87186; 99284

== ENCOUNTER 2018-08-31 19:58 | Emergency (ER) | payer BC ==
[2018-08-31 20:04] VITALS: TEMP 98.2
[2018-08-31 20:37] LABS: Basophils % (A) 0 %; Eosinophils # (A) 0.5 k/uL (0-0.7); Eosinophils % (A) 5 %; HCT 43.8 % (34.0-46.0); HGB 14.5 gm/dL (11.4-16.0); Lymphocytes # (A) 3.1 k/uL (1.0-4.8); Lymphocytes % (A) 33 %; MCH 28.8 pg (25.0-35.0); MCHC 33.2 g/dL (31.0-37.0); MCV 86.9 fL (80.0-100.0); Mean Platelet Volume 7.3; Monocytes # (A) 0.5 k/uL (0-1.0); Monocytes % (A) 6 %; Neutrophils # (A) 4.9 k/uL (1.3-7.7); Neutrophils % (A) 54 %; Platelet Count 316 k/uL (150-450); RBC 5.04 m/uL (3.80-5.40); RDW 12.9 % (11.5-15.5); WBC 9.2 k/uL (3.8-10.6)
[2018-08-31 20:47] LABS: ALT 44 U/L (9-52); AST 22 U/L (14-36); Albumin 4.2 g/dL (3.5-5.0); Alkaline Phosphatase 43 U/L (38-126); Anion Gap 8 mmol/L; Blood Urea Nitrogen 14 mg/dL (7-17); Calcium 9.9 mg/dL (8.4-10.2); Carbon Dioxide 24 mmol/L (22-30); Chloride 108 mmol/L (98-107); Glucose 113 mg/dL (74-99); Lipase 118 U/L (23-300); Potassium 3.6 mmol/L (3.5-5.1); Sodium 140 mmol/L (137-145); Total Bilirubin 0.4 mg/dL (0.2-1.3); Total Protein 7.1 g/dL (6.3-8.2)
[2018-08-31 20:50] LABS: Creatine Kinase 80 U/L (30-135); D-Dimer 0.28 mg/L FEU (<0.60); Partial Thromboplastin Time 23.6 sec (22.0-30.0)
[2018-08-31 21:04] LABS: Creatine Kinase MB 0.6 ng/mL (0.0-2.4); Troponin I <0.012 ng/mL (0.000-0.034)
--- NOTE | 2018-08-31 21:14 | ED ---
Chest Pain HPI - General Chief Complaint: Chest Pain Stated Complaint: chest pain, numbness in arm Time Seen by Provider: 08/31/18 20:11 Source: patient, RN notes reviewed, old records reviewed Mode of arrival: wheelchair Limitations: no limitations - History of Present Illness Initial Comments: This is a 43-year-old female the ER for evasive chest pain left-sided chest pain left sided chest pain is left arm tingling, paresthesia-type pain, patient is recent travel history no sick contacts. States she was driving her car began to feel his symptoms, denies any recent anxiety or increased life stressors. No prior history of heart disease no high blood pressure cholesterol no diabetes remote history of smoking and possible family history of heart disease but not a young age MD Complaint: chest pain -: hour(s) (1) Onset: during exertion Pain Location: left chest Pain Radiation: LUE Severity: mild Severity scale (1-10): 2 Quality: aching Consistency: constant Improves With: nothing Worsens With: nothing Anginal Symptoms: dyspnea Other Symptoms: cough Treatments Prior to Arrival: none - Related Data Home Medications Medication Instructions Recorded Confirmed Linaclotide [Linzess] 290 mcg PO DAILY 08/31/18 08/31/18 Phentermine HCl [Adipex-P] 37.5 mg PO DAILY 08/31/18 08/31/18 Previous Rx's Medication Instructions Recorded Ranitidine HCl [Zantac] 150 mg PO BID #60 tab 01/30/18 Sucralfate [Carafate] 1 gm PO ACHS #120 tab 02/05/18 Allergies Allergy/AdvReac Type Severity Reaction Status Date / Time cephalexin monohydrate Allergy Anaphylaxis Verified 08/31/18 20:11 [From Keflex] Penicillins Allergy Anaphylaxis Verified 08/31/18 20:11 Sulfa (Sulfonamide Allergy Anaphylaxis Verified 08/31/18 20:11 Antibiotics) Review of Systems ROS Statement: Those systems with pertinent positive or pertinent negative responses have been documented in the HPI. ROS Other: All systems not noted in ROS Statement are negative. EKG Findings - EKG Comments: EKG Findings:: EKG shows sinus rhythm rate of 86, IL 108, QRS 86, QTc 437 Past Medical History Past Medical History: No Reported History Additional Past Medical History / Comment(s): HX constipation. SEVERE ABD PAIN FOR 2 WEEKS. History of Any Multi-Drug Resistant Organisms: None Reported Past Surgical History: Section, Cholecystectomy, Hysterectomy, Uterine Ablation Past Anesthesia/Blood Transfusion Reactions: No Reported Reaction Past Psychological History: No Psychological Hx Reported Smoking Status: Current every day smoker Past Alcohol Use History: Occasional Past Drug Use History: None Reported - Past Family History Sister(s) Family Medical History: Pulmonary Embolus General Exam Limitations: no limitations General appearance: alert, in no apparent distress Head exam: Present: atraumatic, normocephalic, normal inspection Eye exam: Present: normal appearance, PERRL, EOMI. Absent: scleral icterus, conjunctival injection, periorbital swelling ENT exam: Present: normal exam, mucous membranes moist Neck exam: Present: normal inspection. Absent: tenderness, meningismus, lymphadenopathy Respiratory exam: Present: normal lung sounds bilaterally. Absent: respiratory distress, wheezes, rales, rhonchi, stridor Cardiovascular Exam: Present: regular rate, normal rhythm, normal heart sounds. Absent: systolic murmur, diastolic murmur, rubs, gallop, clicks GI/Abdominal exam: Present: soft, normal bowel sounds. Absent: distended, tenderness, guarding, rebound, rigid Extremities exam: Present: normal inspection, full ROM, normal capillary refill. Absent: tenderness, pedal edema, joint swelling, calf tenderness Back exam: Present: normal inspection Neurological exam: Present: alert, oriented X3, CN II-XII intact Psychiatric exam: Present: normal affect, normal mood Skin exam: Present: warm, dry, intact, normal color. Absent: rash Course Vital Signs 08/31/18 08/31/18 08/31/18 20:01 20:30 21:00 Temperature 98.2 F Pulse Rate 92 85 85 Respiratory 18 18 19 Rate Blood Pressure 131/83 121/84 111/89 O2 Sat by Pulse 100 Oximetry 08/31/18 08/31/18 08/31/18 21:30 22:00 22:30 Temperature Pulse Rate 101 H 87 88 Respiratory 16 14 16 Rate Blood Pressure 121/81 105/69 115/76 O2 Sat by Pulse Oximetry 08/31/18 09/01/18 23:30 00:00 Temperature Pulse Rate 89 89 Respiratory 18 18 Rate Blood Pressure 106/70 119/75 O2 Sat by Pulse Oximetry - Reevaluation(s) Reevaluation #1: Medical record is reviewed Patient informed of need to return if symptoms worsen, patient currently denying chest pain states she feels comfortable with discharge Chest Pain MDM - MDM 43 female the ER with nonspecific chest pain and no cardiac risk factors, patient coming in for evaluation of chest pain, she has CTA here in the emergency room that is negative. Labwork and EKG otherwise negative, patient to follow up on an outpatient basis for evaluation for chest pain, patient denies current chest pain Disposition Clinical Impression: Chest pain Disposition: HOME SELF-CARE Condition: Good Instructions: Chest Pain (ED) Is patient prescribed a controlled substance at d/c from ED?: No Referrals: Chen Louis MD [Primary Care Provider] - 1-2 days
--- NOTE | 2018-08-31 21:40 | XR ---
EXAMINATION TYPE: XR chest 2V DATE OF EXAM: 08/31/2018 COMPARISON: Prior chest x-ray 01/31/2017 HISTORY: Chest pain TECHNIQUE: Frontal and lateral views of the chest are obtained. FINDINGS: There is no focal air space opacity, pleural effusion, or pneumothorax seen. The cardiac silhouette size is within normal limits. The osseous structures are intact. There are overlying car diac leads. IMPRESSION: No acute cardiopulmonary process.
--- NOTE | 2018-08-31 23:43 | CT ---
EXAMINATION TYPE: CT angio thor/abd pel aorta DATE OF EXAM: 08/31/2018 COMPARISON: None HISTORY: abdpain CT DLP: 1454.3 mGycm. Automated Exposure Control for Dose Reduction was Utilized. CONTRAST: CT scan of the thorax, abdomen and pelvis is performed with IV Contrast, patient injected with 100 mL of Isovue 370. Exam was performed without and with the IV contrast. There are 3-D post processed images. FINDINGS: There is normal branching pattern of the great vessels on the aortic arch. Thoracic aorta is intact w ithout evidence of aneurysm or dissection. There is no filling defect seen in the pulmonary arteries. Heart size is normal. There is no pericardial effusion. There is no mediastinal adenopathy. There ar e no hilar masses. The abdominal aorta appears normal. There is no evidence of aneurysm or dissection. There is patency of the celiac artery superior mesenteric artery both renal arteries, common internal and external astrid ac arteries. Femoral arteries are not included on the contrast images. Arteries appear widely patent. Liver spleen pancreas appear normal. There are clips from cholecystectomy. Kidneys appear normal. The re is no adrenal mass. There is no retroperitoneal adenopathy. I see no intestinal wall thickening. T here are no dilated loops. The bony structures appear intact. There is no evidence of a renal calculu s. The lungs are clear of infiltrate. There is no evidence of a pulmonary mass. IMPRESSION: Negative CT angiogram of the chest abdomen pelvis. No evidence of dissection. No evidence of pulmonar y embolism.
[2018-08-31 23:54] VITALS: PULSE 89; RESP 18
[2018-09-01 00:06] VITALS: BP 119/75
--- NOTE | 2018-09-02 04:32 | CDI ---
Documentation Clarification OP Dear Dr. Josefa Gotti Please do addendum to ED report for missing HPI and Physical examination. Thank you, Una Monroe Property Officer If you have any questions, please contact [employer] at [phone] [facility]
== END 2018-09-01 00:26 | disposition home or self-care (01) ==
LOC: EC 19:58
DX: R07.9 Chest pain, unspecified (principal); R06.00 Dyspnea, unspecified; R05 Cough; R20.2 Paresthesia of skin; Z87.19 Personal history of other diseases of the digestive system; F17.200 Nicotine dependence, unspecified, uncomplicated; Z79.899 Other long term (current) drug therapy; Z88.0 Allergy status to penicillin; Z88.1 Allergy status to other antibiotic agents; Z88.2 Allergy status to sulfonamides
CPT/HCPCS: 36415; 93005; 85379; 80053; 82550; 82553; 83690; 83735; 84484; 85025; 85610; 85730; 71046; 71275; 74174; 99285; Q9967

== ENCOUNTER 2019-04-15 12:11 | Emergency (ER) | payer BC ==
[2019-04-15 12:25] VITALS: RESP 18
[2019-04-15] MEDS ORDERED: MORPHINE SULFATE 4 MG/ML SYRINGE IV STA (12:46)
[2019-04-15] MEDS ORDERED: SODIUM CHLORIDE 0.9% 1,000 ML IV STA ×2 (12:46)
[2019-04-15] MEDS ORDERED: KETOROLAC 30 MG/ML 1 ML VIAL IVP STA (12:46)
[2019-04-15] MEDS ORDERED: ONDANSETRON 4 MG/2 ML VIAL IVP STA (12:46)
[2019-04-15] MEDS ORDERED: PANTOPRAZOLE 40 MG/10 ML VIAL IVP STA (12:46)
[2019-04-15 13:33] LABS: Basophils % (A) 1 %; Eosinophils # (A) 0.3 k/uL (0-0.7); Eosinophils % (A) 5 %; HGB 14.6 gm/dL (11.4-16.0); Lymphocytes # (A) 2.5 k/uL (1.0-4.8); Lymphocytes % (A) 36 %; MCH 28.4 pg (25.0-35.0); MCHC 32.5 g/dL (31.0-37.0); MCV 87.5 fL (80.0-100.0); Mean Platelet Volume 7.7; Monocytes # (A) 0.4 k/uL (0-1.0); Monocytes % (A) 6 %; Neutrophils # (A) 3.5 k/uL (1.3-7.7); Neutrophils % (A) 51 %; Platelet Count 338 k/uL (150-450); RBC 5.15 m/uL (3.80-5.40); RDW 14.2 % (11.5-15.5); WBC 6.9 k/uL (3.8-10.6)
[2019-04-15 13:41] LABS: INR 0.9 (<1.2); Partial Thromboplastin Time 24.5 sec (22.0-30.0); Prothrombin Time 9.9 sec (9.0-12.0)
[2019-04-15 13:45] LABS: Appearance,Urine Clear (Clear); Bilirubin,Urine Negative (Negative); Blood,Urine Negative (Negative); Color,Urine Light Yellow; Glucose,Urine (UA) Negative (Negative); Ketones,Urine Negative (Negative); Leukocyte Esterase,Urine Negative (Negative); Nitrite,Urine Negative (Negative); Protein,Urine Negative (Negative); Specific Gravity,Urine 1.005 (1.001-1.035); Urobilinogen,Urine <2.0 mg/dL (<2.0)
--- NOTE | 2019-04-15 13:45 | ED ---
Abdominal Pain HPI - General Chief Complaint: Abdominal Pain Stated Complaint: Abd pain, nausea Time Seen by Provider: 04/15/19 12:40 Source: patient, RN notes reviewed, old records reviewed Limitations: no limitations - History of Present Illness Initial Comments: Patient is a 43-year-old female presents emergency department today with onset of right lower quadrant abdominal pain starting this morning. She states that she's had history of cholecystectomy. Patient states she had no fevers or chills. She does feel nauseated. Patient states that she has had no dysuria or other symptoms. She has surgical history includes hysterectomy as well. Patient states that she's had no associated chest pain or shortness of breath. - Related Data Home Medications Medication Instructions Recorded Confirmed Linaclotide [Linzess] 290 mcg PO DAILY 08/31/18 08/31/18 Phentermine HCl [Adipex-P] 37.5 mg PO DAILY 08/31/18 08/31/18 Previous Rx's Medication Instructions Recorded Ranitidine HCl [Zantac] 150 mg PO BID #60 tab 01/30/18 Sucralfate [Carafate] 1 gm PO ACHS #120 tab 02/05/18 Ondansetron Odt [Zofran Odt] 4 mg PO Q8HR PRN #20 tab 04/15/19 Sucralfate [Carafate] 1 gm PO ACHS #20 tablet 04/15/19 Allergies Allergy/AdvReac Type Severity Reaction Status Date / Time cephalexin monohydrate Allergy Anaphylaxis Verified 04/15/19 12:25 [From Keflex] Penicillins Allergy Anaphylaxis Verified 04/15/19 12:25 Sulfa (Sulfonamide Allergy Anaphylaxis Verified 04/15/19 12:25 Antibiotics) Review of Systems ROS Statement: Those systems with pertinent positive or pertinent negative responses have been documented in the HPI. ROS Other: All systems not noted in ROS Statement are negative. Past Medical History Past Medical History: No Reported History Additional Past Medical History / Comment(s): HX constipation. SEVERE ABD PAIN FOR 2 WEEKS. History of Any Multi-Drug Resistant Organisms: None Reported Past Surgical History: Section, Cholecystectomy, Hysterectomy, Uterine Ablation Past Anesthesia/Blood Transfusion Reactions: No Reported Reaction Past Psychological History: No Psychological Hx Reported Smoking Status: Current every day smoker Past Alcohol Use History: Occasional Past Drug Use History: None Reported - Past Family History Sister(s) Family Medical History: Pulmonary Embolus General Exam - General Exam Comments Initial Comments: Alert and oriented 43-year-old female. No significant distress. Limitations: no limitations General appearance: alert, in no apparent distress Head exam: Present: atraumatic Eye exam: Present: normal appearance, PERRL, EOMI. Absent: scleral icterus, conjunctival injection, periorbital swelling ENT exam: Present: normal exam, mucous membranes moist Neck exam: Present: normal inspection. Absent: tenderness, meningismus, lymphadenopathy Respiratory exam: Present: normal lung sounds bilaterally. Absent: respiratory distress, wheezes, rales, rhonchi, stridor Cardiovascular Exam: Present: regular rate, normal rhythm, normal heart sounds. Absent: systolic murmur, diastolic murmur, rubs, gallop, clicks GI/Abdominal exam: Present: soft, tenderness (Right lower quadrant tenderness), normal bowel sounds. Absent: distended, guarding, rebound, rigid Extremities exam: Present: normal inspection, full ROM, normal capillary refill. Absent: tenderness, pedal edema, joint swelling, calf tenderness Back exam: Present: normal inspection Neurological exam: Present: alert, oriented X3, CN II-XII intact Psychiatric exam: Present: normal affect, normal mood Skin exam: Present: warm, dry, intact, normal color. Absent: rash Course Vital Signs 04/15/19 04/15/19 04/15/19 12:22 14:15 15:33 Temperature 98.4 F 98.0 F Pulse Rate 103 H 95 95 Respiratory 18 18 18 Rate Blood Pressure 110/70 109/64 119/78 O2 Sat by Pulse 98 98 98 Oximetry Medical Decision Making - Medical Decision Making 43 year old female, presents with nausea nad RLQ abdominal pain. No fever. Patient labs are normal. She does have RLQ tenderness. PAtient was given CT scan, evidence of enteritis. No sign of appendicitis. Patient advised likely enteritis, and clear liquid diet. Discussed monitoring for fevers and close PCP follow up. Discussed return parameters. - Lab Data Result diagrams: 04/15/19 13:05 04/15/19 13:05 Lab Results 04/15/19 04/15/19 04/15/19 Range/Units 13:05 13:05 13:05 WBC 6.9 (3.8-10.6) k/uL RBC 5.15 (3.80-5.40) m/uL Hgb 14.6 (11.4-16.0) gm/dL Hct 45.0 (34.0-46.0) % MCV 87.5 (80.0-100.0) fL MCH 28.4 (25.0-35.0) pg MCHC 32.5 (31.0-37.0) g/dL RDW 14.2 (11.5-15.5) % Plt Count 338 (150-450) k/uL Neutrophils % 51 % Lymphocytes % 36 % Monocytes % 6 % Eosinophils % 5 % Basophils % 1 % Neutrophils # 3.5 (1.3-7.7) k/uL Lymphocytes # 2.5 (1.0-4.8) k/uL Monocytes # 0.4 (0-1.0) k/uL Eosinophils # 0.3 (0-0.7) k/uL Basophils # 0.0 (0-0.2) k/uL PT (9.0-12.0) sec INR (<1.2) APTT (22.0-30.0) sec Sodium 140 (137-145) mmol/L Potassium 4.1 (3.5-5.1) mmol/L Chloride 104 (98-107) mmol/L Carbon Dioxide 26 (22-30) mmol/L Anion Gap 10 mmol/L BUN 5 L (7-17) mg/dL Creatinine 0.66 (0.52-1.04) mg/dL Est GFR (CKD-EPI)AfAm >90 (>60 ml/min/1.73 sqM) Est GFR (CKD-EPI)NonAf >90 (>60 ml/min/1.73 sqM) Glucose 80 (74-99) mg/dL Plasma Lactic Acid Slava (0.7-2.0) mmol/L Calcium 9.6 (8.4-10.2) mg/dL Total Bilirubin 0.6 (0.2-1.3) mg/dL AST 23 (14-36) U/L ALT 38 (9-52) U/L Alkaline Phosphatase 54 (38-126) U/L Total Protein 7.4 (6.3-8.2) g/dL Albumin 4.7 (3.5-5.0) g/dL Amylase 75 (30-110) U/L Lipase 60 (23-300) U/L Urine Color Light Yellow Urine Appearance Clear (Clear) Urine pH 7.0 (5.0-8.0) Ur Specific [place] 1.005 (1.001-1.035) Urine Protein Negative (Negative) Urine Glucose (UA) Negative (Negative) Urine Ketones Negative (Negative) Urine Blood Negative (Negative) Urine Nitrite Negative (Negative) Urine Bilirubin Negative (Negative) Urine Urobilinogen <2.0 (<2.0) mg/dL Ur Leukocyte Esterase Negative (Negative) 04/15/19 04/15/19 Range/Units 13:05 13:05 WBC (3.8-10.6) k/uL RBC (3.80-5.40) m/uL Hgb (11.4-16.0) gm/dL Hct (34.0-46.0) % MCV (80.0-100.0) fL MCH (25.0-35.0) pg MCHC (31.0-37.0) g/dL RDW (11.5-15.5) % Plt Count (150-450) k/uL Neutrophils % % Lymphocytes % % Monocytes % % Eosinophils % % Basophils % % Neutrophils # (1.3-7.7) k/uL Lymphocytes # (1.0-4.8) k/uL Monocytes # (0-1.0) k/uL Eosinophils # (0-0.7) k/uL Basophils # (0-0.2) k/uL PT 9.9 (9.0-12.0) sec INR 0.9 (<1.2) APTT 24.5 (22.0-30.0) sec Sodium (137-145) mmol/L Potassium (3.5-5.1) mmol/L Chloride (98-107) mmol/L Carbon Dioxide (22-30) mmol/L Anion Gap mmol/L BUN (7-17) mg/dL Creatinine (0.52-1.04) mg/dL Est GFR (CKD-EPI)AfAm (>60 ml/min/1.73 sqM) Est GFR (CKD-EPI)NonAf (>60 ml/min/1.73 sqM) Glucose (74-99) mg/dL Plasma Lactic Acid Slava 0.8 (0.7-2.0) mmol/L Calcium (8.4-10.2) mg/dL Total Bilirubin (0.2-1.3) mg/dL AST (14-36) U/L ALT (9-52) U/L Alkaline Phosphatase (38-126) U/L Total Protein (6.3-8.2) g/dL Albumin (3.5-5.0) g/dL Amylase (30-110) U/L Lipase (23-300) U/L Urine Color Urine Appearance (Clear) Urine pH (5.0-8.0) Ur Specific [place] (1.001-1.035) Urine Protein (Negative) Urine Glucose (UA) (Negative) Urine Ketones (Negative) Urine Blood (Negative) Urine Nitrite (Negative) Urine Bilirubin (Negative) Urine Urobilinogen (<2.0) mg/dL Ur Leukocyte Esterase (Negative) - Radiology Data Radiology results: report reviewed Prominent fluid-filled small bowel loops in the mid lower abdomen and pelvis. Correlating for enteritis. Otherwise temperature processes identified in the abdomen or pelvis. Disposition Clinical Impression: Enteritis Disposition: HOME SELF-CARE Condition: Good Instructions (If sedation given, give patient instructions): Enteritis (ED) Additional Instructions: Advised to do clear liquid diet for the next 24-48 hours. Have close follow- up with your primary care physician and GI specialty. Return to the emergency department if any alarming signs or symptoms occur. Take the medications as prescribed. Prescriptions: Sucralfate [Carafate] 1 gm PO ACHS #20 tablet Ondansetron Odt [Zofran Odt] 4 mg PO Q8HR PRN #20 tab PRN Reason: Nausea Is patient prescribed a controlled substance at d/c from ED?: No Referrals: Chen Louis MD [Primary Care Provider] - 1-2 days Mirela Martinez MD [STAFF PHYSICIAN] - 1-2 days Time of Disposition: 15:10
[2019-04-15 13:46] LABS: ALT 38 U/L (9-52); AST 23 U/L (14-36); African American GFR (CKD) >90 (>60 ml/min/1.73 sqM); Albumin 4.7 g/dL (3.5-5.0); Alkaline Phosphatase 54 U/L (38-126); Amylase 75 U/L (30-110); Anion Gap 10 mmol/L; Blood Urea Nitrogen 5 mg/dL (7-17); Calcium 9.6 mg/dL (8.4-10.2); Carbon Dioxide 26 mmol/L (22-30); Chloride 104 mmol/L (98-107); Glucose 80 mg/dL (74-99); Lipase 60 U/L (23-300); Potassium 4.1 mmol/L (3.5-5.1); Sodium 140 mmol/L (137-145); Total Bilirubin 0.6 mg/dL (0.2-1.3); Total Protein 7.4 g/dL (6.3-8.2)
--- NOTE | 2019-04-15 14:08 | CT ---
EXAMINATION TYPE: CT abdomen pelvis w con DATE OF EXAM: 04/15/2019 COMPARISON: 01/30/2018 HISTORY: 23-year-old female Right lower quadrant pain with nausea TECHNIQUE: Contiguous axial scanning of the abdomen and pelvis following administration of 100 ml Iso juwan 300 IV contrast. Delayed images through the kidneys and coronal/sagittal reconstructions perform ed. CT DLP: 732 mGycm Automated exposure control for dose reduction was used. FINDINGS: Heart normal size without pericardial effusion. Lung bases clear without pleural effusion. Liver mildly enlarged measuring 19.1 cm. No focal lesion. Portal venous system is patent. Mild promin ence to the bile duct likely normal given postcholecystectomy status. Adrenal glands, kidneys, spleen, and pancreas appear within normal limits. No dilated small bowel, free fluid, or free air. However, prominent fluid-filled small bowel loops ar e present in the mid and lower abdomen and pelvis. No mesenteric or retroperitoneal lymphadenopathy. Normal appendix. Moderate stool within the colon. No pericolonic inflammatory change. Bladder is urine distended. Uterus surgically absent. There is a 2.2 cm dominant follicle or function al cyst in the right ovary. Left ovary is visualized. No pelvic free fluid or pelvic lymphadenopathy identified. Bones: Mild degenerative change at the hips. Posterior bulging disc at L3-L4 with degenerative disc d isease L4-L5 redemonstrated. Similar mild narrowing of the spinal canal at L3-L4. IMPRESSION: 1. PROMINENT FLUID-FILLED SMALL BOWEL LOOPS IN THE MID AND LOWER ABDOMEN AND PELVIS. CORRELATE FOR EN TERITIS. 2. OTHERWISE, NO ACUTE INFLAMMATORY PROCESS IDENTIFIED IN THE ABDOMEN OR PELVIS.
[2019-04-15 14:16] VITALS: PULSE 95
[2019-04-15 15:34] VITALS: BP 119/78; TEMP 98
== END 2019-04-15 15:33 | disposition home or self-care (01) ==
LOC: EC 12:11
DX: K52.9 Noninfective gastroenteritis and colitis, unspecified (principal); F17.200 Nicotine dependence, unspecified, uncomplicated; Z79.899 Other long term (current) drug therapy; Z88.0 Allergy status to penicillin; Z88.2 Allergy status to sulfonamides; Z88.1 Allergy status to other antibiotic agents; Z90.49 Acquired absence of other specified parts of digestive tract; Z90.710 Acquired absence of both cervix and uterus
CPT/HCPCS: 36415; 80053; 82150; 83605; 83690; 85025; 85610; 85730; 81003; 87040; 74177; 99285; 96374; 96375 ×3; 96361 ×2; J2270; J2405; J1885; C9113

== ENCOUNTER 2019-05-28 10:53 | Day surgery (SDC) | payer BC ==
[2019-05-24 16:09] VITALS: BMI 27.8
[2019-05-28 11:28] VITALS: RESP 16; TEMP 98.3
[2019-05-28] MEDS: LACTATED RINGERS 1,000 ML IV SCH ×2 (11:42→12:30)
[2019-05-28] MEDS ORDERED: LIDOCAINE 1% 20 ML VIAL (10MG/ML) FOR IV START INTRADERMA ONE (11:42)
[2019-05-28] MEDS ORDERED: PROPOFOL 10 MG/ML 20 ML VIAL IV ONE (12:49)
[2019-05-28] MEDS ORDERED: MIDAZOLAM 2 MG/2 ML VIAL ONE (12:49)
[2019-05-28] MEDS ORDERED: fentaNYL (PF) 50 MCG/ML 2 ML AMP ONE (12:49)
--- NOTE | 2019-05-28 13:08 | P.PCN ---
Date of Procedure: 05/28/19 Procedure(s) Performed: BRIEF HISTORY: Patient is a 44-year-old pleasant, white female scheduled for an elective colonoscopy as a part of change in bowel habits. PROCEDURE PERFORMED: Colonoscopy. PREOPERATIVE DIAGNOSIS: Change In bowel habits. IV sedation per Anesthesia. PROCEDURE: After informed consent was obtained, the patient, was brought into the endoscopy unit. IV sedation was administered by Anesthesia under continuous monitoring. Digital rectal examination was normal. Initially the Olympus CF-160 flexible video colonoscope was then inserted in the rectum, gradually advanced into the cecum without any difficulty. Careful examination was performed as the scope was gradually being withdrawn. Ileocecal valve and the appendiceal orifice were visualized and appeared normal. Prep was fair. Mucosa of the cecum, ascending colon, transverse colon, descending colon, sigmoid colon, and rectum appeared normal. Retroflexion was performed in the rectum and no lesions were seen. The patient tolerated the procedure well. IMPRESSION: Normal-appearing colon from rectum to cecum with no evidence of colorectal neoplasia . RECOMMENDATIONS: Findings of this examination were discussed with the patient as well as a family.. She was advised to continue with linzess and started on MiraLAX 1 scoop twice daily. She'll be seen in office in 3-4 weeks.
[2019-05-28] MEDS ORDERED: IV FLUID CONTINUATION 600 ML IV ONE (13:11)
[2019-05-28 13:15] VITALS: PULSE 72
[2019-05-28 13:27] VITALS: BP 111/75
== END 2019-05-28 13:41 | disposition home or self-care (01) ==
LOC: ORWHC2ENDO 10:53
PROVIDERS: ATTEND Internal Medicine Gastroenterology
DX: R19.4 Change in bowel habit (principal); Z88.0 Allergy status to penicillin; Z88.2 Allergy status to sulfonamides; Z88.1 Allergy status to other antibiotic agents; F17.200 Nicotine dependence, unspecified, uncomplicated; Z79.899 Other long term (current) drug therapy
CPT/HCPCS: 45378; J2250; J3010; J2704

== ENCOUNTER 2020-06-25 09:48 | Emergency (ER) | payer BC ==
[2020-06-25 09:55] VITALS: BP 119/73; PULSE 102; RESP 18; TEMP 97.6
--- NOTE | 2020-06-25 10:24 | ED ---
ENT HPI - General Chief complaint: ENT Stated complaint: trouble hearing Time Seen by Provider: 06/25/20 10:04 Source: patient Mode of arrival: ambulatory Limitations: no limitations - History of Present Illness Initial comments: Patient is a 45-year-old female presenting to the emergency Department with complaints of loss of hearing out of both ears that has been gradually getting worse over the past week. She denies any injuries or trauma. She states she has had problems with the ears in the past but never like this. Denies any fever, chills. She states she is having very little pain in her ears but is having trouble hearing. She denies any nausea, vomiting, dizziness. She has no further complaints at this time. Upon arrival to the ER, her vital signs are stable. - Related Data Home Medications Medication Instructions Recorded Confirmed Linaclotide [Linzess] 290 mcg PO DAILY 08/31/18 05/28/19 Phentermine HCl [Adipex-P] 37.5 mg PO DAILY 08/31/18 05/28/19 Previous Rx's Medication Instructions Recorded Sucralfate [Carafate] 1 gm PO ACHS #120 tab 02/05/18 Tstckgaa-Lyzmeenzd-Uv Otic 4 drops BOTH EARS QID 7 Days #1 06/25/20 [Cortisporin Otic Soln] bottle Allergies Allergy/AdvReac Type Severity Reaction Status Date / Time cephalexin monohydrate Allergy Anaphylaxis Verified 06/25/20 09:55 [From Keflex] Penicillins Allergy Anaphylaxis Verified 06/25/20 09:55 Sulfa (Sulfonamide Allergy Anaphylaxis Verified 06/25/20 09:55 Antibiotics) vancomycin Allergy Anaphylaxis Verified 06/25/20 09:55 Review of Systems ROS Statement: Those systems with pertinent positive or pertinent negative responses have been documented in the HPI. ROS Other: All systems not noted in ROS Statement are negative. Past Medical History Past Medical History: GERD/Reflux Additional Past Medical History / Comment(s): CONSTIPATION, HX OF ER VISIT 04/15/19 FOR ABD PAIN. History of Any Multi-Drug Resistant Organisms: None Reported Past Surgical History: Section, Cholecystectomy, Hysterectomy, Uterine Ablation Additional Past Surgical History / Comment(s): COLONOSCOPY Past Anesthesia/Blood Transfusion Reactions: No Reported Reaction Additional Past Anesthesia/Blood Transfusion Reaction / Comment(s): STATES "CRABBY" WHEN SHE WAKES UP Past Psychological History: No Psychological Hx Reported Smoking Status: Current every day smoker Past Alcohol Use History: Occasional Past Drug Use History: None Reported - Past Family History Sister(s) Family Medical History: Pulmonary Embolus General Exam - General Exam Comments Initial Comments: GENERAL: Patient is well-developed and well-nourished. Patient is nontoxic and in no acute distress. HEAD: Atraumatic, normocephalic. EYES: Pupils equal round and reactive to light, extraocular movements intact, sclera anicteric, conjunctiva are normal. Eyelids were unremarkable. ENT: Bilateral EACs are swollen, consistent with otitis externa, with white debris present. Very little erythema. No pain with movement of bilateral ears. I'm not able to visualize bilateral TMs. nares patent, oropharynx clear without exudates. Moist mucous membranes. NECK: Normal range of motion, supple without lymphadenopathy or JVD. LUNGS: Unlabored respirations. Breath sounds clear to auscultation bilaterally and equal. No wheezes rales or rhonchi. HEART: Regular rate and rhythm without murmurs, rubs or gallops. ABDOMEN: Soft, nontender, normoactive bowel sounds. No guarding, no rebound. No masses appreciated. : Deferred MUSCULOSKELETAL: Normal extremities with adequate strength and normal range of motion, no pitting or edema. No clubbing or cyanosis. NEUROLOGICAL: Patient is alert and oriented x 3. Motor and sensory are also intact. Cranial nerves II through XII grossly intact. Symmetrical smile. Normal speech, normal gait. PSYCH: Normal mood, normal affect. SKIN: Warm, Dry, normal turgor, no rashes or lesions noted. Limitations: no limitations Course Vital Signs 06/25/20 09:51 Temperature 97.6 F Pulse Rate 102 H Respiratory 18 Rate Blood Pressure 119/73 O2 Sat by Pulse 99 Oximetry Medical Decision Making - Medical Decision Making Patient is a 45-year-old female here for hearing loss of the increasing over the past week. She denies any injuries or trauma. She has a history of ear issues. Exam reveals bilateral moderate otitis externa. Her TMs are not visible at this time. I will start patient on eardrops. I recommended following up with her PCP next week to make sure there is improvement. Patient is in agreement with this plan of care, she is stable for discharge. Return parameters were discussed with the patient and she verbalized understanding. Case discussed with Dr. Brito. Disposition Clinical Impression: Bilateral otitis externa Disposition: HOME SELF-CARE Condition: Stable Instructions (If sedation given, give patient instructions): Otitis Externa (ED) Additional Instructions: Please return to the Emergency Department if symptoms worsen or any other concerns. Use eardrops as discussed, allowing at least 10 minutes for drops to soak into each ear. Follow up with PCP to ensure improvement. Prescriptions: Dzwlvfui-Qybgdvkqv-Fl Otic [Cortisporin Otic Soln] 4 drops BOTH EARS QID 7 Days #1 bottle Is patient prescribed a controlled substance at d/c from ED?: No Referrals: Chen Louis MD [Primary Care Provider] - 1-2 days
== END 2020-06-25 10:36 | disposition home or self-care (01) ==
LOC: EC 09:48
DX: H60.93 Unspecified otitis externa, bilateral (principal); K21.9 Gastro-esophageal reflux disease without esophagitis; F17.200 Nicotine dependence, unspecified, uncomplicated; Z79.899 Other long term (current) drug therapy; Z88.1 Allergy status to other antibiotic agents; Z88.0 Allergy status to penicillin; Z88.2 Allergy status to sulfonamides; Z90.49 Acquired absence of other specified parts of digestive tract
CPT/HCPCS: 99283

== ENCOUNTER 2021-03-01 13:56 | Emergency (ER) | payer BC ==
[2021-03-01 14:00] VITALS: TEMP 97.9
[2021-03-01] MEDS ORDERED: ACETAMINOPHEN TAB 500 MG TAB PO STA (14:20)
[2021-03-01] MEDS ORDERED: ASPIRIN 81 MG PO STA (14:20)
[2021-03-01] MEDS ORDERED: NITROGLYCERIN OINT 1 INCH/GM PACKET TOPICAL STA (14:20)
[2021-03-01 14:22] VITALS: RESP 18
--- NOTE | 2021-03-01 14:22 | ED ---
General Adult HPI - General Chief complaint: Chest Pain Stated complaint: chest pain/arm numbness Time Seen by Provider: 03/01/21 14:00 Source: patient, RN notes reviewed, old records reviewed Mode of arrival: wheelchair Limitations: no limitations - History of Present Illness Initial comments: This is a 45-year-old female presents emergency department with past medical history significant for smoking. Patient denies diabetes hypertension high cost felt. Patient states she does have a family history of cardiac disease. Patient comes in today stating that about 2 hours ago when she was smoking in her car she had left-sided chest pain that radiated down her left arm. Patient states she was a little bit short of breath with it as well. Patient states the pain is somewhat light up but it is not on. Patient denies any diaphoretic episodes. Patient denies any nausea. Patient denies abdominal pain. Patient denies any back pain. Patient denies any recent fever chills or cough per patient denies any similar pain. Patient denies any swelling to the legs or calf tenderness. - Related Data Home Medications Medication Instructions Recorded Confirmed Biotin 5,000 mcg PO DAILY 03/01/21 03/01/21 Zinc 50 mg PO DAILY 03/01/21 03/01/21 Allergies Allergy/AdvReac Type Severity Reaction Status Date / Time cephalexin monohydrate Allergy Anaphylaxis Verified 03/01/21 16:14 [From Keflex] Penicillins Allergy Anaphylaxis Verified 03/01/21 16:14 Sulfa (Sulfonamide Allergy Anaphylaxis Verified 03/01/21 16:14 Antibiotics) vancomycin Allergy Anaphylaxis Verified 03/01/21 16:14 Review of Systems ROS Statement: Those systems with pertinent positive or pertinent negative responses have been documented in the HPI. ROS Other: All systems not noted in ROS Statement are negative. Past Medical History Past Medical History: GERD/Reflux Additional Past Medical History / Comment(s): CONSTIPATION, HX OF ER VISIT 04/15/19 FOR ABD PAIN. History of Any Multi-Drug Resistant Organisms: None Reported Past Surgical History: Section, Cholecystectomy, Hysterectomy, Uterine Ablation Additional Past Surgical History / Comment(s): COLONOSCOPY Past Anesthesia/Blood Transfusion Reactions: No Reported Reaction Additional Past Anesthesia/Blood Transfusion Reaction / Comment(s): STATES "CRABBY" WHEN SHE WAKES UP Past Psychological History: No Psychological Hx Reported Smoking Status: Current every day smoker Past Alcohol Use History: Occasional Past Drug Use History: None Reported - Past Family History Sister(s) Family Medical History: Pulmonary Embolus General Exam - General Exam Comments Initial Comments: GENERAL: Patient is well-developed and well-nourished. Patient is nontoxic and well- hydrated and is in mild distress. ENT: Neck is soft and supple. No significant lymphadenopathy is noted. Oropharynx is clear. Moist mucous membranes. Neck has full range of motion without eliciting any pain. EYES: The sclera were anicteric and conjunctiva were pink and moist. Extraocular movements were intact and pupils were equal round and reactive to light. Eyelids were unremarkable. PULMONARY: Unlabored respirations. Good breath sounds bilaterally. No audible rales rhonchi or wheezing was noted. CARDIOVASCULAR: There is a regular rate and rhythm without any murmurs gallops or rubs. ABDOMEN: Soft and nontender with normal bowel sounds. SKIN: Skin is clear with no lesions or rashes and otherwise unremarkable. NEUROLOGIC: Patient is alert and oriented x3. Cranial nerves II through XII are grossly intact. Motor and sensory are also intact. Normal speech, volume and content. Symmetrical smile. MUSCULOSKELETAL: Normal extremities with adequate strength and full range of motion. No lower extremity swelling or edema. No calf tenderness. LYMPHATICS: No significant lymphadenopathy is noted PSYCHIATRIC: Normal psychiatric evaluation. Limitations: no limitations Course Vital Signs 03/01/21 03/01/21 13:56 14:21 Temperature 97.9 F Pulse Rate 83 100 Respiratory 20 18 Rate Blood Pressure 147/81 129/97 O2 Sat by Pulse 97 98 Oximetry Medical Decision Making - Medical Decision Making EKG shows normal sinus rhythm at 88 bpm MO interval 228 QRS is 90 QT interval 366 QTC is 442. Patient's EKG shows no ST segment elevation or depression. Chest x-ray shows no acute abnormality. Patient was given aspirin and Nitropaste I went back into the room to reevaluate her she stated that the pain subsided completely I recommended the patient stay in the hospital and get repeat labs as well as CT cardiology. Patient refused to stay she's understood the risks for possible morbidity or mortality. - Lab Data Result diagrams: 03/01/21 14:23 03/01/21 14:23 Lab Results 03/01/21 03/01/21 03/01/21 Range/Units 14:23 14:23 14:23 WBC 8.9 (3.8-10.6) k/uL RBC 5.10 (3.80-5.40) m/uL Hgb 15.2 (11.4-16.0) gm/dL Hct 44.2 (34.0-46.0) % MCV 86.7 (80.0-100.0) fL MCH 29.7 (25.0-35.0) pg MCHC 34.3 (31.0-37.0) g/dL RDW 12.5 (11.5-15.5) % Plt Count 376 (150-450) k/uL MPV 7.5 Neutrophils % 62 % Lymphocytes % 26 % Monocytes % 7 % Eosinophils % 3 % Basophils % 1 % Neutrophils # 5.5 (1.3-7.7) k/uL Lymphocytes # 2.3 (1.0-4.8) k/uL Monocytes # 0.6 (0-1.0) k/uL Eosinophils # 0.3 (0-0.7) k/uL Basophils # 0.1 (0-0.2) k/uL PT 10.3 (9.0-12.0) sec INR 1.0 (<1.2) APTT 23.2 (22.0-30.0) sec D-Dimer (<0.60) mg/L FEU Sodium 139 (137-145) mmol/L Potassium 4.5 (3.5-5.1) mmol/L Chloride 105 (98-107) mmol/L Carbon Dioxide 25 (22-30) mmol/L Anion Gap 9 mmol/L BUN 8 (7-17) mg/dL Creatinine 0.60 (0.52-1.04) mg/dL Est GFR (CKD-EPI)AfAm >90 (>60 ml/min/1.73 sqM) Est GFR (CKD-EPI)NonAf >90 (>60 ml/min/1.73 sqM) Glucose 99 (74-99) mg/dL Calcium 10.5 H (8.4-10.2) mg/dL Magnesium 2.0 (1.6-2.3) mg/dL Total Bilirubin 0.4 (0.2-1.3) mg/dL AST 28 (14-36) U/L ALT 26 (4-34) U/L Alkaline Phosphatase 57 (38-126) U/L Troponin I (0.000-0.034) ng/mL Total Protein 7.6 (6.3-8.2) g/dL Albumin 4.7 (3.5-5.0) g/dL 03/01/21 03/01/21 Range/Units 14:23 14:23 WBC (3.8-10.6) k/uL RBC (3.80-5.40) m/uL Hgb (11.4-16.0) gm/dL Hct (34.0-46.0) % MCV (80.0-100.0) fL MCH (25.0-35.0) pg MCHC (31.0-37.0) g/dL RDW (11.5-15.5) % Plt Count (150-450) k/uL MPV Neutrophils % % Lymphocytes % % Monocytes % % Eosinophils % % Basophils % % Neutrophils # (1.3-7.7) k/uL Lymphocytes # (1.0-4.8) k/uL Monocytes # (0-1.0) k/uL Eosinophils # (0-0.7) k/uL Basophils # (0-0.2) k/uL PT (9.0-12.0) sec INR (<1.2) APTT (22.0-30.0) sec D-Dimer 0.28 (<0.60) mg/L FEU Sodium (137-145) mmol/L Potassium (3.5-5.1) mmol/L Chloride (98-107) mmol/L Carbon Dioxide (22-30) mmol/L Anion Gap mmol/L BUN (7-17) mg/dL Creatinine (0.52-1.04) mg/dL Est GFR (CKD-EPI)AfAm (>60 ml/min/1.73 sqM) Est GFR (CKD-EPI)NonAf (>60 ml/min/1.73 sqM) Glucose (74-99) mg/dL Calcium (8.4-10.2) mg/dL Magnesium (1.6-2.3) mg/dL Total Bilirubin (0.2-1.3) mg/dL AST (14-36) U/L ALT (4-34) U/L Alkaline Phosphatase (38-126) U/L Troponin I <0.012 (0.000-0.034) ng/mL Total Protein (6.3-8.2) g/dL Albumin (3.5-5.0) g/dL Disposition Clinical Impression: Chest pain Disposition: Left Against Medical Advice Referrals: Chen Louis MD [Primary Care Provider] - 1-2 days Time of Disposition: 16:52
[2021-03-01 14:37] LABS: Basophils # (A) 0.1 k/uL (0-0.2); Basophils % (A) 1 %; Eosinophils # (A) 0.3 k/uL (0-0.7); Eosinophils % (A) 3 %; HCT 44.2 % (34.0-46.0); HGB 15.2 gm/dL (11.4-16.0); Lymphocytes # (A) 2.3 k/uL (1.0-4.8); Lymphocytes % (A) 26 %; MCH 29.7 pg (25.0-35.0); MCHC 34.3 g/dL (31.0-37.0); MCV 86.7 fL (80.0-100.0); Mean Platelet Volume 7.5; Monocytes # (A) 0.6 k/uL (0-1.0); Monocytes % (A) 7 %; Neutrophils # (A) 5.5 k/uL (1.3-7.7); Neutrophils % (A) 62 %; Platelet Count 376 k/uL (150-450); RDW 12.5 % (11.5-15.5); WBC 8.9 k/uL (3.8-10.6)
[2021-03-01 14:51] LABS: Partial Thromboplastin Time 23.2 sec (22.0-30.0); Prothrombin Time 10.3 sec (9.0-12.0)
[2021-03-01 14:56] LABS: ALT 26 U/L (4-34); AST 28 U/L (14-36); African American GFR (CKD) >90 (>60 ml/min/1.73 sqM); Albumin 4.7 g/dL (3.5-5.0); Alkaline Phosphatase 57 U/L (38-126); Anion Gap 9 mmol/L; Blood Urea Nitrogen 8 mg/dL (7-17); Calcium 10.5 mg/dL (8.4-10.2); Carbon Dioxide 25 mmol/L (22-30); Chloride 105 mmol/L (98-107); Glucose 99 mg/dL (74-99); Non-African American GFR(CKD) >90 (>60 ml/min/1.73 sqM); Potassium 4.5 mmol/L (3.5-5.1); Sodium 139 mmol/L (137-145); Total Bilirubin 0.4 mg/dL (0.2-1.3); Total Protein 7.6 g/dL (6.3-8.2)
--- NOTE | 2021-03-01 16:41 | XR ---
EXAMINATION TYPE: XR chest 2V DATE OF EXAM: 03/01/2021 COMPARISON: Correlation made with prior chest x-ray from 08/31/2018. HISTORY: Chest pain. TECHNIQUE: Frontal and lateral views of the chest are obtained. FINDINGS: There is no focal air space opacity, pleural effusion, or pneumothorax seen. The cardiac silhouette size is within normal limits. The osseous structures are intact. IMPRESSION: No acute cardiopulmonary process.
[2021-03-01 17:26] VITALS: BP 101/62; PULSE 87
== END 2021-03-01 17:30 | disposition left against medical advice (07) ==
LOC: EC 13:56
DX: R07.89 Other chest pain (principal); R06.02 Shortness of breath; R20.0 Anesthesia of skin; K21.9 Gastro-esophageal reflux disease without esophagitis; F17.200 Nicotine dependence, unspecified, uncomplicated; Z88.0 Allergy status to penicillin; Z82.49 Family history of ischemic heart disease and other diseases of the circulatory system
CPT/HCPCS: 36415; 71046; 80053; 83735; 84484; 85025; 85379; 85610; 85730; 93005; 99285

== ENCOUNTER 2021-05-25 19:23 | Emergency (ER) | payer BC ==
[2021-05-25 19:37] VITALS: TEMP 98.2
--- NOTE | 2021-05-25 20:19 | XR ---
EXAMINATION TYPE: XR knee complete LT DATE OF EXAM: 05/25/2021 COMPARISON: NONE HISTORY: Knee swelling TECHNIQUE: 3 views FINDINGS: There is some spurring on the superior patella. I see no fracture nor dislocation. There is small knee joint effusion. IMPRESSION: Small joint effusion. No fracture.
--- NOTE | 2021-05-25 20:34 | ED ---
Lower Extremity Injury HPI - General Chief Complaint: Extremity Injury, Lower Stated Complaint: L knee injury Time Seen by Provider: 05/25/21 19:47 Source: patient Mode of arrival: ambulatory - History of Present Illness Initial Comments: 46-year-old female presents to the emergency department with a chief complaint of left knee pain. Patient reports about 2 weeks ago she bent over to pick something up and felt sudden pop in the anterior aspect the left knee. Patient reports now the pain is gradual increase in severity along with swelling. Patient reports pain is exacerbated with ambulation or weightbearing. She denies taking medication to alleviate the symptoms. States the pain is 8/10, sharp in nature. Denies any weakness of paresthesias distally to to the leg - Related Data Home Medications Medication Instructions Recorded Confirmed Biotin 5,000 mcg PO DAILY 03/01/21 03/01/21 Zinc 50 mg PO DAILY 03/01/21 03/01/21 Allergies Allergy/AdvReac Type Severity Reaction Status Date / Time cephalexin monohydrate Allergy Anaphylaxis Verified 05/25/21 19:37 [From Keflex] Penicillins Allergy Anaphylaxis Verified 05/25/21 19:37 Sulfa (Sulfonamide Allergy Anaphylaxis Verified 05/25/21 19:37 Antibiotics) vancomycin Allergy Anaphylaxis Verified 05/25/21 19:37 Review of Systems ROS Statement: Those systems with pertinent positive or pertinent negative responses have been documented in the HPI. ROS Other: All systems not noted in ROS Statement are negative. Past Medical History Past Medical History: GERD/Reflux Additional Past Medical History / Comment(s): CONSTIPATION, HX OF ER VISIT 04/15/19 FOR ABD PAIN. History of Any Multi-Drug Resistant Organisms: None Reported Past Surgical History: Section, Cholecystectomy, Hysterectomy, Uterine Ablation Additional Past Surgical History / Comment(s): COLONOSCOPY Past Anesthesia/Blood Transfusion Reactions: No Reported Reaction Additional Past Anesthesia/Blood Transfusion Reaction / Comment(s): STATES "CRABBY" WHEN SHE WAKES UP Past Psychological History: No Psychological Hx Reported Smoking Status: Current every day smoker Past Alcohol Use History: Occasional Past Drug Use History: None Reported - Past Family History Sister(s) Family Medical History: Pulmonary Embolus General Exam Limitations: no limitations General appearance: alert, in no apparent distress Head exam: Present: atraumatic, normocephalic, normal inspection Eye exam: Present: normal appearance, PERRL, EOMI Pupils: Present: normal accommodation ENT exam: Present: normal exam, normal oropharynx, mucous membranes moist Neck exam: Present: normal inspection, full ROM. Absent: tenderness Respiratory exam: Present: normal lung sounds bilaterally. Absent: respiratory distress, wheezes, rales, rhonchi, stridor Cardiovascular Exam: Present: regular rate, normal rhythm, normal heart sounds. Absent: systolic murmur Extremities exam: Present: tenderness (Diffuse tenderness over the left knee), normal capillary refill, joint swelling (Left knee), other (Palpable DP and PT bilaterally). Absent: normal inspection (Swelling noted in the left leg), full ROM (Limited range of motion of flexion due to pain), pedal edema, calf tenderness Back exam: Present: normal inspection, full ROM Neurological exam: Present: alert, oriented X3 Psychiatric exam: Present: normal affect, normal mood Skin exam: Present: warm, dry, intact, normal color Course Vital Signs 05/25/21 19:33 Temperature 98.2 F Pulse Rate 100 Respiratory 19 Rate Blood Pressure 136/81 O2 Sat by Pulse 98 Oximetry Medical Decision Making - Medical Decision Making 46-year-old male presents to emergency department with a chief complaint of left knee pain. On Physical examination, she is neurovascularly intact. Swelling noted was slightly limited range of motion. X-ray shows small joint effusion. Patient will be applied. She will follow-up with sales recruitment specialist. Case discussed with physician. Disposition Clinical Impression: Left knee sprain Disposition: HOME SELF-CARE Condition: Stable Instructions (If sedation given, give patient instructions): Knee Sprain (ED) Additional Instructions: Follow with sales recruitment specialist. Return to emergency department if symptoms worsen. Is patient prescribed a controlled substance at d/c from ED?: No Referrals: Chen Louis MD [Primary Care Provider] - 1-2 days Time of Disposition: 20:34
[2021-05-25 21:05] VITALS: BP 132/78; PULSE 82; RESP 18
== END 2021-05-25 21:05 | disposition home or self-care (01) ==
LOC: EC 19:23
DX: S83.92XA Sprain of unspecified site of left knee, initial encounter (principal); F17.200 Nicotine dependence, unspecified, uncomplicated; Z88.0 Allergy status to penicillin; Z88.1 Allergy status to other antibiotic agents; Z88.2 Allergy status to sulfonamides; Z88.6 Allergy status to analgesic agent; X50.9XXA Other and unspecified overexertion or strenuous movements or postures, initial encounter
CPT/HCPCS: 99283

== ENCOUNTER 2023-04-09 15:48 | Emergency (ER) | payer BC ==
[2023-04-09] MEDS ORDERED: IBUPROFEN 600 MG STARTER PACK 4 TAB BTL PO STA (16:39)
--- NOTE | 2023-04-09 16:41 | ED ---
General Adult HPI - General Chief complaint: Skin/Abscess/Foreign Body Stated complaint: abcess tooth Time Seen by Provider: 04/09/23 16:08 Source: patient Mode of arrival: ambulatory Limitations: no limitations - History of Present Illness Initial comments: 47-year-old woman presented to the ED with a chief complaint of dental pain. Patient states that she has had pain of the lower right first molar for the last 2 weeks. States that over the past 2 weeks has had to reschedule multiple times with her dentist however has an appointment in 3 days. Eyes chest pain or shortness of breath denies fever no other complaints. - Related Data Home Medications Medication Instructions Recorded Confirmed Biotin [Biotin Disolve] 5,000 mcg PO DAILY 03/01/21 03/01/21 Zinc 50 mg PO DAILY 03/01/21 03/01/21 Previous Rx's Medication Instructions Recorded Doxycycline [Vibramycin] 100 mg PO BID 7 Days #14 capsule 04/09/23 Allergies Allergy/AdvReac Type Severity Reaction Status Date / Time cephalexin monohydrate Allergy Anaphylaxis Verified 05/25/21 19:37 [From Keflex] Penicillins Allergy Anaphylaxis Verified 05/25/21 19:37 Sulfa (Sulfonamide Allergy Anaphylaxis Verified 05/25/21 19:37 Antibiotics) vancomycin Allergy Anaphylaxis Verified 05/25/21 19:37 Review of Systems ROS Statement: Those systems with pertinent positive or pertinent negative responses have been documented in the HPI. ROS Other: All systems not noted in ROS Statement are negative. Past Medical History Past Medical History: GERD/Reflux Additional Past Medical History / Comment(s): CONSTIPATION, HX OF ER VISIT 04/15/19 FOR ABD PAIN. History of Any Multi-Drug Resistant Organisms: None Reported Past Surgical History: Section, Cholecystectomy, Hysterectomy, Uterine Ablation Additional Past Surgical History / Comment(s): COLONOSCOPY Past Anesthesia/Blood Transfusion Reactions: No Reported Reaction Additional Past Anesthesia/Blood Transfusion Reaction / Comment(s): STATES "CRABBY" WHEN SHE WAKES UP Past Psychological History: No Psychological Hx Reported Smoking Status: Current every day smoker Past Alcohol Use History: Occasional Past Drug Use History: None Reported - Past Family History Sister(s) Family Medical History: Pulmonary Embolus General Exam Limitations: no limitations General appearance: alert, in no apparent distress Head exam: Present: atraumatic, normocephalic Eye exam: Present: normal appearance ENT exam: Present: other (Poor dentition with multiple dental cavities. Notable dental cavity of the first lower right molar without surrounding abscess. No significant gingivitis. No significant submandibular swelling.) Respiratory exam: Present: normal lung sounds bilaterally Cardiovascular Exam: Present: regular rate, normal rhythm GI/Abdominal exam: Present: soft Neurological exam: Present: alert, oriented X3 Psychiatric exam: Present: normal affect, normal mood Skin exam: Present: warm, dry Course Vital Signs 04/09/23 16:02 Temperature 98.5 F Pulse Rate 78 Respiratory 18 Rate Blood Pressure 137/82 O2 Sat by Pulse 98 Oximetry Medical Decision Making - Medical Decision Making Was pt. sent in by a medical professional or institution (, PA, BELT POLISHER, urgent care, hospital, or snf...) When possible be specific @ -No Did you speak to anyone other than the patient for history (EMS, parent, family, police, friend...)? What history was obtained from this source @ -No Did you review nursing and triage notes (agree or disagree)? Why? @ -I reviewed and agree with nursing and triage notes Were old charts reviewed (outside hosp., previous admission, EMS record, old EKG, old radiological studies, urgent care reports/EKG's, snf records)? Report findings @ -History reviewed showing ALLERGIES to cephalosporins, penicillins, sulfas, and vancomycin. Differential Diagnosis (chest pain, altered mental status, abdominal pain women, abdominal pain men, vaginal bleeding, weakness, fever, dyspnea, syncope, headache, dizziness, GI bleed, back pain, seizure, CVA, palpatations, mental health, musculoskeletal)? @ -ANUG, Naeem angina, apical/periapical abscess. This is not meant to be an all-inclusive list. EKG interpreted by me (3pts min.). @ -None X-rays interpreted by me (1pt min.). @ -None done CT interpreted by me (1pt min.). @ -None done U/S interpreted by me (1pt. min.). @ -None done What testing was considered but not performed or refused? (CT, X-rays, U/S, labs)? Why? @ -None What meds were considered but not given or refused? Why? @ -None Did you discuss the management of the patient with other professionals (luis manuel raphael ivictorino Rodríguez, PA, BELT POLISHER, lab, RT, psych nurse, director social welfare, city collector, teacher, weapons officer, manager rn case)? Give summary @ -No Was smoking cessation discussed for >3mins.? @ -No Was critical care preformed (if so, how long)? @ -No Were there social determinants of health that impacted care today? How? (Homelessness, low income, unemployed, alcoholism, drug addiction, transportation, low edu. Level, literacy, decrease access to med. care, residential, rehab)? @ -No Was there de-escalation of care discussed even if they declined (Discuss DNR or withdrawal of care, Hospice)? DNR status @ -No What co-morbidities impacted this encounter? (DM, HTN, Smoking, COPD, CAD, Cancer, CVA, ARF, Chemo, Hep., AIDS, mental health diagnosis, sleep apnea, morbid obesity)? @ -None Was patient admitted / discharged? Hospital course, mention meds given and route, prescriptions, significant lab abnormalities, going to OR and other pertinent info. @ -Discharged. Provided prescription for doxycycline and provided ibuprofen starter pack here in the ED. Advised follow-up with as scheduled with dentist this Friday. Discussed return cautions patient verbalizes agreement. Undiagnosed new problem with uncertain prognosis? @ -No Drug Therapy requiring intensive monitoring for toxicity (Heparin, Nitro, Insuli n, Cardizem)? @ -No Were any procedures done? @ -No Diagnosis/symptom? @ -Dental pain/dental cavity. Acute, or Chronic, or Acute on Chronic? @ -Acute Uncomplicated (without systemic symptoms) or Complicated (systemic symptoms)? @ -Uncomplicated Side effects of treatment? @ -No Exacerbation, Progression, or Severe Exacerbation? @ -No Poses a threat to life or bodily function? How? (Chest pain, [place], [place], pneumonia, PE, COPD, DKA, ARF, appy, cholecystitis, CVA, Diverticulitis, Homicidal, Suicidal, threat to staff... and all critical care pts) @ -No Disposition Clinical Impression: Dental cavities Disposition: HOME SELF-CARE Condition: Good Additional Instructions: Please return to the Emergency Department if symptoms worsen or any other concerns. Prescriptions: Doxycycline [Vibramycin] 100 mg PO BID 7 Days #14 capsule Is patient prescribed a controlled substance at d/c from ED?: No Referrals: Chen Louis MD [Primary Care Provider] - 1-2 days Time of Disposition: 16:38
[2023-04-09 17:01] VITALS: BP 109/73; PULSE 75; RESP 165; TEMP 97.9
== END 2023-04-09 17:13 | disposition home or self-care (01) ==
LOC: EC 15:48
DX: K02.9 Dental caries, unspecified (principal); F17.200 Nicotine dependence, unspecified, uncomplicated; Z88.0 Allergy status to penicillin; Z88.1 Allergy status to other antibiotic agents; Z88.2 Allergy status to sulfonamides
CPT/HCPCS: 99283

== ENCOUNTER 2023-10-27 12:05 | Emergency (ER) | payer BC, OTHER ==
--- NOTE | 2023-10-27 12:53 | ED ---
Abdominal Pain HPI - General Source: patient, RN notes reviewed Mode of arrival: ambulatory Limitations: no limitations <Janessa Davis - Last Filed: 10/27/23 12:52> - General Source: patient, RN notes reviewed Mode of arrival: ambulatory Limitations: no limitations <Darius Sanchez - Last Filed: 10/27/23 14:45> - General Chief Complaint: Abdominal Pain Stated Complaint: abd pain Time Seen by Provider: 10/27/23 12:52 - History of Present Illness Initial Comments: This is a 48-year-old female who presents to the emergency department for abdominal pain. States that this goes from the upper abdomen down to her lower abdomen and also wraps around into her back. States that her abdomen feels swollen as well. This began 2 days ago. Reports associated nausea and headaches. Denies any fevers or chills. (Janessa Davis) - Related Data Home Medications Medication Instructions Recorded Confirmed Biotin [Biotin Disolve] 5,000 mcg PO DAILY 03/01/21 03/01/21 Zinc 50 mg PO DAILY 03/01/21 03/01/21 Previous Rx's Medication Instructions Recorded Doxycycline [Vibramycin] 100 mg PO BID 7 Days #14 capsule 04/09/23 Metoclopramide [Reglan] 10 mg PO TID PRN #15 tab 10/27/23 Nitrofurantoin Monohyd/M-Cryst 100 mg PO Q12HR #14 cap 10/27/23 [Macrobid] Allergies Allergy/AdvReac Type Severity Reaction Status Date / Time cephalexin monohydrate Allergy Anaphylaxis Verified 10/27/23 12:53 [From Keflex] Penicillins Allergy Anaphylaxis Verified 10/27/23 12:53 Sulfa (Sulfonamide Allergy Anaphylaxis Verified 10/27/23 12:53 Antibiotics) vancomycin Allergy Anaphylaxis Verified 10/27/23 12:53 Review of Systems ROS Other: All systems not noted in ROS Statement are negative. <Janessa Davis - Last Filed: 10/27/23 12:52> ROS Other: All systems not noted in ROS Statement are negative. <Darius Sanchez - Last Filed: 10/27/23 14:45> ROS Statement: Those systems with pertinent positive or pertinent negative responses have been documented in the HPI. Past Medical History Past Medical History: GERD/Reflux Additional Past Medical History / Comment(s): CONSTIPATION, HX OF ER VISIT 04/15/19 FOR ABD PAIN. History of Any Multi-Drug Resistant Organisms: None Reported Past Surgical History: Section, Cholecystectomy, Hysterectomy, Uterine Ablation Additional Past Surgical History / Comment(s): COLONOSCOPY Past Anesthesia/Blood Transfusion Reactions: No Reported Reaction Additional Past Anesthesia/Blood Transfusion Reaction / Comment(s): STATES "CRABBY" WHEN SHE WAKES UP Past Psychological History: No Psychological Hx Reported Smoking Status: Current every day smoker Past Alcohol Use History: Occasional Past Drug Use History: None Reported - Past Family History Sister(s) Family Medical History: Pulmonary Embolus <Janessa Davis - Last Filed: 10/27/23 12:52> General Exam <Janessa Davis - Last Filed: 10/27/23 12:52> Limitations: no limitations General appearance: alert, in no apparent distress Head exam: Present: atraumatic, normocephalic, normal inspection Eye exam: Present: normal appearance, PERRL, EOMI. Absent: scleral icterus, conjunctival injection, periorbital swelling ENT exam: Present: normal exam, normal oropharynx, mucous membranes moist Neck exam: Present: normal inspection, full ROM. Absent: tenderness, meningismus, lymphadenopathy Respiratory exam: Present: normal lung sounds bilaterally. Absent: respiratory distress, wheezes, rales, rhonchi, stridor Cardiovascular Exam: Present: regular rate, normal rhythm, normal heart sounds. Absent: systolic murmur, diastolic murmur, rubs, gallop, clicks GI/Abdominal exam: Present: soft, tenderness ( Minimal), normal bowel sounds. Absent: distended, guarding, rebound, rigid <Darius Sanchez - Last Filed: 10/27/23 14:45> - General Exam Comments Initial Comments: Visual Physical Exam Vital signs reviewed General: Well-appearing, nontoxic, no acute distress. Head: Normocephalic, atraumatic Eyes: PERRLA, EOMI ENT: Airway patent Chest: Nonlabored breathing Skin: No visual rash, normal skin tone Neuro: Alert and oriented 3 Musculoskeletal: No gross abnormalities (Janessa Davis) Course Vital Signs 10/27/23 12:51 Temperature 98.2 F Pulse Rate 86 Respiratory 16 Rate Blood Pressure 122/78 O2 Sat by Pulse 99 Oximetry Medical Decision Making <Janessa Davis - Last Filed: 10/27/23 12:52> - Lab Data Result diagrams: 10/27/23 13:56 10/27/23 13:56 <Darius Sanchez - Last Filed: 10/27/23 14:45> - Medical Decision Making I performed the QuickNote portion of this chart. Signed Janessa Davis PA-C. (Janessa Davis) Was pt. sent in by a medical professional or institution (KO Rodríguez, LIGHTING ADVISER, urgent care, hospital, or skilled nursing...) When possible be specific @ -No Did you speak to anyone other than the patient for history (EMS, parent, family, police, friend...)? What history was obtained from this source @ -No Did you review nursing and triage notes (agree or disagree)? Why? @ -I reviewed and agree with nursing and triage notes Were old charts reviewed (outside hosp., previous admission, EMS record, old EKG, old radiological studies, urgent care reports/EKG's, skilled nursing records)? Report findings @ -No old charts were reviewed Differential Diagnosis (chest pain, altered mental status, abdominal pain women, abdominal pain men, vaginal bleeding, weakness, fever, dyspnea, syncope, headache, dizziness, GI bleed, back pain, seizure, CVA, palpatations, mental health, musculoskeletal)? @ -Differential Abdominal Pain Women: Appendicitis, Cholecystitis, diverticulosis, ischemic bowel, pancreatitis, hepatitis, UTI, gastroenteritis, AAA, incarcerated hernia, bowel obstruction, constipation, inflammatory bowel, hepatitis, peptic ulcer disease, splenic infarction, perforated viscus, vulvitis, ovarian torsion, PID, kidney stone, placenta abruption, this is not meant to be an all-inclusive list EKG interpreted by me (3pts min.). @ -None X-rays interpreted by me (1pt min.). @ -None done CT interpreted by me (1pt min.). @ -None done U/S interpreted by me (1pt. min.). @ -None done What testing was considered but not performed or refused? (CT, X-rays, U/S, labs)? Why? @ -None What meds were considered but not given or refused? Why? @ -None Did you discuss the management of the patient with other professionals (professionals i.e. , PA, LIGHTING ADVISER, lab, RT, psych nurse, social sciences lecturer, cart driver, teacher, parking control officer, oil field caser)? Give summary @ -No Was smoking cessation discussed for >3mins.? @ -No Was critical care preformed (if so, how long)? @ -No Were there social determinants of health that impacted care today? How? (Homelessness, low income, unemployed, alcoholism, drug addiction, transportation, low edu. Level, literacy, decrease access to med. care, [facility], rehab)? @ -No Was there de-escalation of care discussed even if they declined (Discuss DNR or withdrawal of care, Hospice)? DNR status @ -No What co-morbidities impacted this encounter? (DM, HTN, Smoking, COPD, CAD, Cancer, CVA, ARF, Chemo, Hep., AIDS, mental health diagnosis, sleep apnea, morbid obesity)? @ -None Was patient admitted / discharged? Hospital course, mention meds given and route, prescriptions, significant lab abnormalities, going to OR and other pertinent info. @ -Discharge patient feels improved after IV fluids, Toradol, Reglan. Patient does have evidence of nitrite-positive urinalysis will be treated for UTI will be discharged in stable condition temperature discussed. Undiagnosed new problem with uncertain prognosis? @ -No Drug Therapy requiring intensive monitoring for toxicity (Heparin, Nitro, Insulin, Cardizem)? @ -No Were any procedures done? @ -No Diagnosis/symptom? @ -[Abdominal pain, UTI Acute, or Chronic, or Acute on Chronic? @ -Acute Uncomplicated (without systemic symptoms) or Complicated (systemic symptoms)? @ -Uncomplicated Side effects of treatment? @ -No Exacerbation, Progression, or Severe Exacerbation? @ -No Poses a threat to life or bodily function? How? (Chest pain, [place], [place], pneumonia, PE, COPD, DKA, ARF, appy, cholecystitis, CVA, Diverticulitis, Homicidal, Suicidal, threat to staff... and all critical care pts) @ -No (Darius Sanchez) - Lab Data Lab Results 10/27/23 10/27/23 10/27/23 Range/Units 13:56 13:56 13:56 WBC 5.9 (3.8-10.6) k/uL RBC 5.27 (3.80-5.40) m/uL Hgb 15.1 (11.4-16.0) gm/dL Hct 46.4 H (34.0-46.0) % MCV 88.0 (80.0-100.0) fL MCH 28.7 (25.0-35.0) pg MCHC 32.6 (31.0-37.0) g/dL RDW 12.7 (11.5-15.5) % Plt Count 311 (150-450) k/uL MPV 7.6 Neutrophils % 65 % Lymphocytes % 22 % Monocytes % 7 % Eosinophils % 4 % Basophils % 0 % Neutrophils # 3.8 (1.3-7.7) k/uL Lymphocytes # 1.3 (1.0-4.8) k/uL Monocytes # 0.4 (0-1.0) k/uL Eosinophils # 0.2 (0-0.7) k/uL Basophils # 0.0 (0-0.2) k/uL Sodium 139 (137-145) mmol/L Potassium 3.9 (3.5-5.1) mmol/L Chloride 103 (98-107) mmol/L Carbon Dioxide 22 (22-30) mmol/L Anion Gap 14 mmol/L BUN 6 L (7-17) mg/dL Creatinine 0.53 (0.52-1.04) mg/dL Est GFR (CKD-EPI)AfAm >90 (>60 ml/min/1.73 sqM) Est GFR (CKD-EPI)NonAf >90 (>60 ml/min/1.73 sqM) Glucose 87 (74-99) mg/dL Calcium 9.5 (8.4-10.2) mg/dL Total Bilirubin 0.6 (0.2-1.3) mg/dL AST 35 (14-36) U/L ALT 47 H (4-34) U/L Alkaline Phosphatase 79 (38-126) U/L Total Protein 7.4 (6.3-8.2) g/dL Albumin 4.4 (3.5-5.0) g/dL Lipase 56 (23-300) U/L Urine Color Colorless Urine Appearance Cloudy H (Clear) Urine pH 5.5 (5.0-8.0) Ur Specific [place] 1.006 (1.001-1.035) Urine Protein Negative (Negative) Urine Glucose (UA) Negative (Negative) Urine Ketones Negative (Negative) Urine Blood Negative (Negative) Urine Nitrite Positive H (Negative) Urine Bilirubin Negative (Negative) Urine Urobilinogen <2.0 (<2.0) mg/dL Ur Leukocyte Esterase Moderate H (Negative) Urine RBC 1 (0-5) /hpf Urine WBC 16 H (0-5) /hpf Ur Squamous Epith Cells 16 H (0-4) /hpf Urine Bacteria Moderate H (None) /hpf Urine Mucus Rare H (None) /hpf Urine Yeast (Budding) Few H (None) /hpf Disposition <Janessa Davis - Last Filed: 10/27/23 12:52> Is patient prescribed a controlled substance at d/c from ED?: No Time of Disposition: 14:45 <Darius Sanchez - Last Filed: 10/27/23 14:45> Clinical Impression: Abdominal pain, UTI (urinary tract infection) Disposition: HOME SELF-CARE Condition: Stable Instructions (If sedation given, give patient instructions): Abdominal Pain ( ED) Additional Instructions: Please return to the Emergency Department if symptoms worsen or any other concerns. Prescriptions: Nitrofurantoin Monohyd/M-Cryst [Macrobid] 100 mg PO Q12HR #14 cap Metoclopramide [Reglan] 10 mg PO TID PRN #15 tab PRN Reason: Nausea Referrals: Chen Louis MD [Primary Care Provider] - 1-2 days
[2023-10-27 13:08] VITALS: TEMP 98.2
[2023-10-27] MEDS ORDERED: SODIUM CHLORIDE 0.9% 1,000 ML IV ONE (13:38)
[2023-10-27] MEDS ORDERED: KETOROLAC 15 MG/ML 1 ML VIAL IVP STA (13:38)
[2023-10-27] MEDS ORDERED: diphenhydrAMINE 50 MG/ML 1 ML VIAL IVP STA (13:38)
[2023-10-27] MEDS ORDERED: METOCLOPRAMIDE 5 MG/ML 2 ML VIAL IVP STA (13:38)
[2023-10-27 14:14] LABS: Basophils % (A) 0 %; Eosinophils # (A) 0.2 k/uL (0-0.7); Eosinophils % (A) 4 %; HCT 46.4 % (34.0-46.0); HGB 15.1 gm/dL (11.4-16.0); Lymphocytes # (A) 1.3 k/uL (1.0-4.8); Lymphocytes % (A) 22 %; MCH 28.7 pg (25.0-35.0); MCHC 32.6 g/dL (31.0-37.0); Mean Platelet Volume 7.6; Monocytes # (A) 0.4 k/uL (0-1.0); Monocytes % (A) 7 %; Neutrophils # (A) 3.8 k/uL (1.3-7.7); Neutrophils % (A) 65 %; Platelet Count 311 k/uL (150-450); RBC 5.27 m/uL (3.80-5.40); RDW 12.7 % (11.5-15.5); WBC 5.9 k/uL (3.8-10.6)
[2023-10-27 14:17] LABS: Appearance,Urine Cloudy (Clear); Bacteria,Urine Moderate /hpf; Bilirubin,Urine Negative (Negative); Blood,Urine Negative (Negative); Budding Yeast,Urine Few /hpf; Color,Urine Colorless; Glucose,Urine (UA) Negative (Negative); Ketones,Urine Negative (Negative); Leukocyte Esterase,Urine Moderate (Negative); Mucus,Urine Rare /hpf; Nitrite,Urine Positive (Negative); PH, Urine 5.5 (5.0-8.0); Protein,Urine Negative (Negative); RBC,Urine 1 /hpf (0-5); Specific Gravity,Urine 1.006 (1.001-1.035); Squamous Epithelial Cell,Urine 16 /hpf (0-4); Urobilinogen,Urine <2.0 mg/dL (<2.0); WBC,Urine 16 /hpf (0-5)
[2023-10-27 14:24] LABS: ALT 47 U/L (4-34); AST 35 U/L (14-36); African American GFR (CKD) >90 (>60 ml/min/1.73 sqM); Albumin 4.4 g/dL (3.5-5.0); Alkaline Phosphatase 79 U/L (38-126); Anion Gap 14 mmol/L; Blood Urea Nitrogen 6 mg/dL (7-17); Calcium 9.5 mg/dL (8.4-10.2); Carbon Dioxide 22 mmol/L (22-30); Chloride 103 mmol/L (98-107); Glucose 87 mg/dL (74-99); Lipase 56 U/L (23-300); Non-African American GFR(CKD) >90 (>60 ml/min/1.73 sqM); Potassium 3.9 mmol/L (3.5-5.1); Sodium 139 mmol/L (137-145); Total Bilirubin 0.6 mg/dL (0.2-1.3); Total Protein 7.4 g/dL (6.3-8.2)
[2023-10-27] MEDS ORDERED: NITROFURANTOIN MONOHYD/M-CRYST 100 MG CAP PO STA (14:42)
[2023-10-27 15:13] VITALS: BP 127/89; PULSE 87; RESP 18
== END 2023-10-27 15:21 | disposition home or self-care (01) ==
LOC: EC 12:05
DX: N39.0 Urinary tract infection, site not specified (principal); F17.200 Nicotine dependence, unspecified, uncomplicated; Z88.2 Allergy status to sulfonamides; Z88.0 Allergy status to penicillin; Z88.1 Allergy status to other antibiotic agents
CPT/HCPCS: 36415; 80053; 83690; 85025; 81001; 87086; 87077; 87186; 99284; 96374; 96375 ×2; 96361; J1200; J2765; J1885

== ENCOUNTER → 2025-03-07 | Outpatient (CLI) | payer BC, OTHER ==
--- NOTE | 2025-03-07 09:14 | MM ---
Reason for Exam: Screening (asymptomatic). Last mammogram was performed 6 year(s) and 6 month(s) ago. Patient History: Menarche at age 13. First Full-Term at age 22. Hysterectomy at age 35. Last menstrual period: Risk Values: Ama 5 year model risk: 0.9%. NCI Lifetime model risk: 9.2%. Prior Study Comparison: 09/02/2018 Bilateral Screening Mammogram, [facility]. 09/02/2018 Right Diagnostic Mammogram, [facility]. Tissue Density: The breasts are heterogeneously dense, which may obscure small masses. Findings: Analyzed By CAD. Right breast: There is no suspicious group of microcalcifications or new suspicious mass. Left breast: There is no suspicious group of microcalcifications or new suspicious mass. Overall Assessment: Negative, BI-RAD 1 Management: Screening Mammogram of both breasts in [address] [facility] will attempt to contact patient to return for supplemental views and ultrasound if indicated. Patient should continue monthly self-breast exams. A clinical breast exam by your physician is recommended on an annual basis. This exam should not preclude additional follow-up of suspicious palpable abnormalities. Note on Ama scores and lifetime risk: 1. A Ama score greater than 3% is considered moderate risk. If this is the case, consider specialist referral to assess eligibility for a risk reducing agent. 2. If overall lifetime risk for the development of breast cancer is 20% or higher, the patient may qualify for future screening with alternating mammogram and breast MRI. [facility], , 03/07/2025 9:09 AM. Electronically signed and approved by: Rick Gonzalez DO
== END | disposition home or self-care (01) ==
LOC: RADMAMWWP 07:14
PROVIDERS: ATTEND Family Medicine
DX: Z12.31 Encounter for screening mammogram for malignant neoplasm of breast (principal); R92.333 Mammographic heterogeneous density, bilateral breasts
CPT/HCPCS: 77063; 77067